=== PATIENT | female | born 1935 | race Caucasian/White ===

== ENCOUNTER 2019-06-28 06:16 | Inpatient (IN) | payer MEDICARE, OTHER ==
[2019-06-28 07:28] LABS: Troponin I 0.057 ng/mL (< 0.028)
[2019-06-28 07:38] LABS: INR-International Normal Ratio 1.3; Prothrombin Time 16.1 sec (12.0-14.7)
[2019-06-28 08:31] VITALS: BMI 34.7
[2019-06-28] MEDS ORDERED: cefTRIAXone\\ROCEPHIN 1 GM in Sodium Chloride 0.9% 100 ML IVPB SCH (09:00)
[2019-06-28] MEDS ORDERED: Ondansetron ODT 4 MG TAB PO PRN (09:05)
[2019-06-28] MEDS ORDERED: IBUPROFEN PO PRN (09:08)
[2019-06-28] MEDS ORDERED: HYDROCODONE PO PRN (09:08)
[2019-06-28] MEDS ORDERED: Non-Formulary Item 1 EACH (Albuterol Sulfate Hfa (Or) 2 PUFF) INH PRN (09:08)
[2019-06-28] MEDS ORDERED: Warfarin Sodium 2 MG TAB PO SCH (09:15)
--- NOTE | 2019-06-28 09:33 | PDOC.FPRHP ---
- Allergies/Adverse Reactions Allergies Allergy/AdvReac Type Severity Reaction Status Date / Time adhesive tape Allergy Intermediate "peels my Verified 05/01/19 22:32 skin off" acetaminophen [From Tylenol] Allergy Hives Verified 05/01/19 22:32 Penicillins Allergy Rash Verified 05/01/19 22:32 simvastatin [From Zocor] Allergy Verified 05/01/19 22:32 Sulfa (Sulfonamide Allergy Verified 05/01/19 22:32 Antibiotics) tramadol Allergy Verified 05/01/19 22:32 - Home Medications Medication Instructions Recorded Confirmed Type Albuterol Sulfate HFA (OR) 2 puff INH PRN PRN 06/28/19 06/28/19 History [Proventil Hfa (or)] Cetirizine HCl [Zyrtec] 10 mg PO DAILY 06/28/19 06/28/19 History Cholecalciferol (Vitamin D3) 3,000 unit PO DAILY 06/28/19 06/28/19 History [Vitamin D] Famotidine [Pepcid AC] 20 mg PO DAILY 06/28/19 06/28/19 History Furosemide [Lasix] 40 mg PO BID 06/28/19 06/28/19 History HYDROcodone/Ibuprofen [Vicoprofen 1 tab PO Q6HR PRN 06/28/19 06/28/19 History 7.5/200] Levothyroxine Sodium [Synthroid] 100 mcg PO DAILY 06/28/19 06/28/19 History Metoprolol Succinate [Toprol XL] 100 mg PO PRN PRN 06/28/19 06/28/19 History Warfarin Sodium [Coumadin] 1 mg PO DAILY@1700 06/28/19 06/28/19 History predniSONE [Prednisone] 5 mg PO 1200 06/28/19 06/28/19 History - History PMHx: PSHx: FHx: Social: - Vital signs BP: [] HR: [] RR: [] Tmax: [] Pox: []% on [] Wt: [] FMR H&P: Results - Labs Result Diagrams: 06/29/19 05:36 06/29/19 05:36 FMR H&P: Upper Level - Plan Date/Time: 06/28/19 0932 PCP: Lolita HPI: This is an 83 yo F admitted for delirium 2/2 UTI. She presented to [facility] last night for hip pain which had come on spontaneously and was similar to her chronic hip pain per her report. This pain resolved with pain medication. The patients daughter states that she had been having hallucinations saying I see people spraying the house for coronoavirus. The patient is AxOx3 and states she feel her normal self. She denies Chest pain, shortness of breath, or fevers at home. She states she has been ambulating with walker as per usual. She denies burning or blood with urination, denies N/V/D. PMH: Lymphedema, CHF, Afib, HTN, Hypothyroidism, CKD3, Pulmonary HTN, Aortic Stenosis, history of breast cancer PSH: partial colectomy, rotator cuff repair, knee x2, hysterectomy, L mastectomy Meds: see list above Allergies: see list above Soc Hx: denies smoking, alcohol, or drugs Fm hx: non-contributory REVIEW OF SYSTEMS: Gen: no fever, chills, or sweats Neuro: denies headache Eyes: no visual changes ENT: no hearing changes, no sore throat, no congestion Resp: denies cough, SOB Card: CP or palpitations GI: no N/V/D, no abdominal pain Heme: no easy bruising/bleeding, no blood thinners Skin: no rash, no erythema Vitals: BP 123/79 P91 R17 T98.4 98% on RA 104kg PHYSICAL EXAMINATION: General: NAD, alert and oriented x3 HEENT:, oropharynx without erythema or exudate, moist Neck: Supple. Full ROM. Heart/Cardiovascular System: irregularly irregular, 4/6 systolic murmur, cap refill <3 Lungs/Respiratory System: CTA-B, no resp distress Abdomen/Gastro-Intestinal System: no abdominal tenderness, normal bowel sounds Extremities: Warm extremities. Chronic lymphedema, no pitting Neuro: No gross deficits appreciated. CN 2-12 grossly intact. Patient was able to transfer herself from bed to bed Psychiatry: Awake, Alert and cooperative with exam Skin: No lesions, rashes, or ulcers A/P: # Delirium 2/2 UTI, Sepsis 2/2 UTI - Cont rocephin - Urine culture pending - WBC 12.4, P91, Tmax 101.4 in ED, s/p 1L NS in ED - Cautious with fluids 2/2 and CHF # COVID r/o - Low suspicion - COVID serology pending # Aortic Stenosis, CHF not in exacerbation, Afib, indeterminate trop-> likely demand - INR 1.3, extra dose Coumadin today - Bifasicular block, called for old EKGs to be sent to floor - Trop 0.051-> 0.057 - BNP 583, baseline 250, no effusion on CTA - Wt 235lbs, patient states baseline is 239 - Home Lasix dose, home meds - Dimer 1.31, likely acute phase reactant, no leg pain, CTA neg, will check lower extremity dopplers 2/2 lymphedema - Patient not interested in further procedures, DNI/DNR. 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 Batres on 06/28/19. I agree with the History, Examination, Assessment and Plan documented above with any addition or exceptions noted below. 83 y.o. WF with h/o Lymphedema, CHF, Afib, HTN, Hypothyroidism, CKD3, Pulmonary HTN, Aortic Stenosis, history of breast cancer here with delirium from sepsis due to Urinary tract infection. Improved since this a.m. Afebrile. continue IV Abx's and IVF as tolerated. Awaiting COVID result but low suspicion, PUI until negative.
[2019-06-28] MEDS ORDERED: PROVENTIL INHALER 6.7 G (200 INHALATIONS) INH PRN (09:34)
[2019-06-28] MEDS ORDERED: Vicoprofen PO PRN (09:39)
[2019-06-28 10:46] LABS: Troponin I 0.069 ng/mL (< 0.028)
[2019-06-28] MEDS: Loratadine 10 MG TAB PO SCH (10:50)
[2019-06-28] MEDS: predniSONE 5 MG TAB PO SCH (10:50)
[2019-06-28] MEDS ORDERED: Furosemide 40 MG TAB PO SCH (14:00)
[2019-06-28 15:59] LABS: Troponin I 0.053 ng/mL (< 0.028)
[2019-06-28] MEDS: Warfarin Sodium 1 MG TAB PO SCH (16:50)
[2019-06-28] MEDS: Furosemide 40 MG TAB PO SCH (21:29)
--- NOTE | 2019-06-28 21:35 | ULT ---
EXAM: Bilateral lower extremity venous ultrasound HISTORY: Elevated d-dimer. Bilateral extremity pain. COMPARISON: None TECHNIQUE: Multiplanar grayscale and color Doppler images were obtained in a bilateral lower extremit y venous ultrasound. Spectral analysis of the Doppler waveforms were performed. FINDINGS: The bilateral common femoral vein, profunda femoral veins, superficial femoral veins, and p opliteal veins are normal in appearance without visible thrombus. These vessels demonstrate normal compression, flow, and augmentation. The bilateral posterior tibial veins, profunda femoral veins and greater saphenous veins are patent w ithout evidence of DVT. IMPRESSION: No evidence of DVT in the left or right lower extremity.
[2019-06-28] MEDS ORDERED: Mag-Al 1200 mg/1200 mg/30 ML UDCUP PO PRN (23:19)
[2019-06-28] MEDS ORDERED: Calcium Carbonate 500 MG ChewTAB PO PRN (23:19)
[2019-06-29 06:10] LABS: #Eosinphils 0.2 thou/uL (0.0-0.7); #Lymphocytes 1.1 thou/uL (1.20-3.40); #Neutrophils 8.3 thou/uL (1.40-6.50); %Basophils 0.1 % (0.0-1.0); %Eosinophils 1.5 % (0.0-10.0); %Lymphocytes 10.6 % (21.0-51.0); %Monocytes 9.4 % (0.0-10.0); %Neutrophils 78.6 % (42.0-75.0); Hemoglobin 12.8 g/dL (12.0-16.0); Mean Corpuscular Hemoglobin 32.7 pg (27.0-31.0); Mean Platelet Volume 9.1 fL (7.4-10.4); Platelet Count 168 thou/uL (130-400); RBC Distribution Width 12.9 % (11.5-14.5); Red Blood Cell (RBC) Count 3.92 mill/uL (4.20-5.40); White Blood Cell (WBC) Count 10.5 thou/uL (4.8-10.8)
[2019-06-29 06:15] LABS: INR-International Normal Ratio 1.3; Prothrombin Time 16.6 sec (12.0-14.7)
[2019-06-29] MEDS ORDERED: Lorazepam 0.5 MG TAB PO SCH (06:15)
[2019-06-29 06:28] LABS: Anion Gap 13 mmol/L (10-20); BUN (Urea Nitrogen) 20 mg/dL (9.8-20.1); Calc. Creatinine Clearance 61 mL/min (70-130); Calcium 8.3 mg/dL (7.8-10.44); Carbon Dioxide 31 mmol/L (23-31); Chloride 99 mmol/L (98-107); Estimated GFR-MDRD 45; Glucose 87 mg/dL (83-110); Potassium 3.2 mmol/L (3.5-5.1); Sodium 140 mmol/L (136-145)
[2019-06-29] MEDS ORDERED: Ipratropium Bromide 2.5 ml Neb ONE (06:40)
--- NOTE | 2019-06-29 06:52 | PDOC.FM ---
- Subjective Subjective: NAEO. Patient reports some R arm pain 2/2 lymphedema but no LE pain or swelling. No chest pain or SOB. Feels about the same as she did yesterday. - Objective MAR Reviewed: Yes Vital Signs & Weight: Vital Signs (12 hours) Temp Pulse Resp BP Pulse Ox 06/29/19 05:00 99.7 F H 109 H 16 115/59 L 93 L 06/29/19 04:11 97 06/28/19 19:30 97.9 F 71 16 115/59 L 97 Weight Weight 106.322 kg I&O: 06/27/19 06/28/19 06/29/19 06:59 06:59 06:59 Intake Total 420 Output Total 900 Balance -480 Result Diagrams: 06/29/19 05:36 06/29/19 05:36 Phys Exam - Physical Examination Constitutional: NAD HEENT: moist MMs Neck: supple, full ROM Respiratory: no wheezing, no rales, clear to auscultation bilateral Cardiovascular: RRR irregularly irregular rhythm w/ NL rate & 4/6 systolic ejection murmur Gastrointestinal: soft, non-tender, no distention Musculoskeletal: no edema erythema & warmth in B/L LEs but nontender w/o edema Neurological: non-focal, moves all 4 limbs Psychiatric: normal affect, A&O x 3 Skin: no rash, normal turgor Dx/Plan (1) Hip pain Code(s): M25.559 - PAIN IN UNSPECIFIED HIP Status: Resolved (2) UTI (urinary tract infection) Status: Acute (3) Afib Code(s): I48.91 - UNSPECIFIED ATRIAL FIBRILLATION Status: Chronic Qualifiers: Atrial fibrillation type: persistent (4) CKD (chronic kidney disease) stage 3, GFR 30-59 ml/min Code(s): N18.3 - CHRONIC KIDNEY DISEASE, STAGE 3 (MODERATE) Status: Chronic (5) Chronic anticoagulation Code(s): Z79.01 - TREAD 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 (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) USE OF ANTICOAGULANTS Status: Chronic (6) HTN (hypertension) Code(s): I10 - ESSENTIAL (PRIMARY) HYPERTENSION Status: Chronic Qualifiers: Hypertension type: essential hypertension Qualified Code(s): I10 - Essential (primary) hypertension (7) Hypothyroidism Code(s): E03.9 - HYPOTHYROIDISM, UNSPECIFIED Status: Chronic (8) Lymphedema Code(s): I89.0 - LYMPHEDEMA, NOT ELSEWHERE CLASSIFIED Status: Chronic (9) Physical deconditioning Code(s): R53.81 - OTHER MALAISE Status: Chronic (10) Severe aortic stenosis Code(s): I35.0 - NONRHEUMATIC AORTIC (VALVE) STENOSIS Status: Chronic - Plan Plan: # Delirium 2/2 Sepsis from UTI, improved - WBC 12.4-->10.5, P91, & Tmax 101.4 in ED on arrival. VSS overnight & oriented to person place & year on exam. - UA dirty. Cx pending. Will continue rocephin pending prelim Cx results & susceptibilities. # COVID r/o, resolved -Negative test resulted yesterday # Aortic Stenosis - Aware. # CHF not in exacerbation, -BNP 583, baseline 250, no effusion on CTA -Continue home meds, QD weights & strict I&Os with fluid restricted & HH diet. # LE erythema -Dimer 1.31, likely acute phase reactant, no leg pain, CTA & lower extremity dopplers negative -Low suspicion for infectious etiology as B/L & not painful. Will continue to monitor. # Afib - INR 1.3 again this AM. Will dose accordingly today with goal of - Continue home meds # indeterminate trop-> likely demand - downtrended over course of day yesterday # Hypothyroidism -TSH 0.37, T4 WNLs. # CKD3 -Cr 1.15, within baseline range # Hip pain -CT hip neg, pain apparently resolved, likely osteoarthritis # Gout - Continue home steroids Fluids: KVO Code: DNR/DNI PPx: home coumadin Dispo: Possible d/c pending Cxs later today or tomorrow. Addendum - Attending - Attending Attestation Date/Time: 06/29/19 1039 I personally evaluated the patient and discussed the management with Dr. Mccurdy. I agree with the History, Examination, Assessment and Plan documented above with any addition or exceptions noted below. 83 yo F being treated for sepsis delirium 2/2 UTI. Awaiting results of urine culture. COVID negative. INR will be followed up outpatient. Patient reports pain in her hand and her hip this morning, history of pseudogout on prednisone. Will transition to inpatient and transfer to medical.
[2019-06-29] MEDS ORDERED: Potassium Chloride 20 MEQ TAB PO SCH (08:00)
[2019-06-29] MEDS ORDERED: CHOLECALCIFEROL 3000 UNIT PO SCH (09:00)
[2019-06-29] MEDS ORDERED: Non-Formulary Item 1 EACH (Cetirizine Hcl [Zyrtec] 10 MG) PO SCH (09:00)
[2019-06-29] MEDS: Famotidine 20 MG TAB PO SCH (09:56)
[2019-06-29] MEDS: Furosemide 40 MG TAB PO SCH ×2 (09:56→20:34)
[2019-06-29] MEDS: Levothyroxine Sodium 100 MCG TAB PO SCH (09:56)
[2019-06-29] MEDS: Loratadine 10 MG TAB PO SCH (09:56)
[2019-06-29] MEDS: predniSONE 5 MG TAB PO SCH (11:13)
[2019-06-29] MEDS ORDERED: oxyCODONE 5 MG TAB PO PRN (11:13)
[2019-06-29] MEDS: Warfarin Sodium 1 MG TAB PO SCH (17:48)
[2019-06-29] MEDS ORDERED: Diclofenac 1% 100 GM GEL TP PRN (19:15)
--- NOTE | 2019-06-29 23:27 | RAD ---
Exam:Right humerus 2 views HISTORY: Pain. Decreased movement. COMPARISON: None FINDINGS: No fracture, cortical irregularity or periosteal reaction IMPRESSION: No fracture.
--- NOTE | 2019-06-29 23:29 | RAD ---
Exam:Right hand 3 views HISTORY: Pain. Decreased movement. History of gout. COMPARISON: 06/26/2016 FINDINGS: Stable degenerative changes involving the first carpometacarpal joint space. There appears to be collapse of the trapezium and trapezoid bones. There are also chronic changes involving the scaphoid bone. There appears to be fusion of the capitate bone and hamate bones. Possible collapse of the lunate bone. No acute fractures. IMPRESSION: Presumed chronic changes of the carpal bones. Dedicated right wrist radiograph series is recommended.
--- NOTE | 2019-06-29 23:29 | RAD ---
Exam:Right forearm 2 view HISTORY: Decreased movement. Pain. COMPARISON: None FINDINGS: No fracture, cortical irregularity or periosteal reaction. IMPRESSION: No fracture.
[2019-06-30] MEDS ORDERED: predniSONE 20 MG TAB PO SCH (00:15)
[2019-06-30] MEDS ORDERED: Morphine 2 MG/ML SYRINGE SLOW IVP SCH (00:45)
[2019-06-30 05:18] LABS: INR-International Normal Ratio 1.3
[2019-06-30 05:29] LABS: MDiff Complete? YES
[2019-06-30] MEDS: cefTRIAXone\\ROCEPHIN 1 GM in Sodium Chloride 0.9% 100 ML IVPB SCH (05:45)
--- NOTE | 2019-06-30 07:06 | PDOC.FM ---
- Subjective Subjective: Patient fevered overnight to 101.3F with tachycardia into the 110s as well. Also had persistent right arm pain. Was given morphine for pain with negative x- ray & abx restarted as fell off orders yesterday. Patient reports she much better this AM. Reports pain in her elbow is much improved. No chest pain or SOB. - Objective MAR Reviewed: Yes Vital Signs & Weight: Vital Signs (12 hours) Temp Pulse Resp BP BP Pulse Ox 06/30/19 06:00 99.6 F 06/30/19 03:52 101.3 F H 111 H 18 120/67 95 06/30/19 03:11 100.9 F H 120 H 20 117/66 94 L 06/30/19 00:00 100.1 F H 125 H 18 127/70 92 L 06/29/19 19:58 98.8 F 99 18 136/78 90 L Weight Weight 107.8 kg I&O: 06/29/19 06/30/19 07/01/19 06:59 06:59 06:59 Intake Total 420 850 Output Total 900 1100 Balance -480 -250 Result Diagrams: 06/30/19 05:00 06/29/19 05:36 Phys Exam - Physical Examination Constitutional: NAD HEENT: moist MMs Neck: supple, full ROM Respiratory: no wheezing, no rales, no rhonchi, clear to auscultation bilateral Cardiovascular: no significant murmur tachycardic with irregular irregular rhythm Gastrointestinal: soft, non-tender, positive bowel sounds Musculoskeletal: edema present trace edema in B/L LEs Neurological: non-focal, moves all 4 limbs Psychiatric: normal affect, A&O x 3 Deviation from normal: B/L LE erythema, improved in appearance to yesterday Dx/Plan (1) Hip pain Code(s): M25.559 - PAIN IN UNSPECIFIED HIP Status: Resolved (2) UTI (urinary tract infection) Status: Acute (3) Afib Code(s): I48.91 - UNSPECIFIED ATRIAL FIBRILLATION Status: Chronic Qualifiers: Atrial fibrillation type: persistent (4) CKD (chronic kidney disease) stage 3, GFR 30-59 ml/min Code(s): N18.3 - CHRONIC KIDNEY DISEASE, STAGE 3 (MODERATE) Status: Chronic (5) Chronic anticoagulation Code(s): Z79.01 - ALF (CURRENT) USE OF ANTICOAGULANTS Status: Chronic (6) HTN (hypertension) Code(s): I10 - ESSENTIAL (PRIMARY) HYPERTENSION Status: Chronic Qualifiers: Hypertension type: essential hypertension Qualified Code(s): I10 - Essential (primary) hypertension (7) Hypothyroidism Code(s): E03.9 - HYPOTHYROIDISM, UNSPECIFIED Status: Chronic (8) Lymphedema Code(s): I89.0 - LYMPHEDEMA, NOT ELSEWHERE CLASSIFIED Status: Chronic (9) Physical deconditioning Code(s): R53.81 - OTHER MALAISE Status: Chronic (10) Severe aortic stenosis Code(s): I35.0 - NONRHEUMATIC AORTIC (VALVE) STENOSIS Status: Chronic - Plan Plan: # Sepsis from UTI, improved -Patient became septic overnight w/ tachycardia & fever but it was noted no abx were given on the floor yesterday. Urine Cx from outside facility + becker- sensitive E coli. s/p rocephin @ ~0530 this AM with improvement in VS since resolution of fever since. WBC up to 21.9 but patient also received a higher dose of steroids for her pseudogout which is likely exacerbating this in the setting of an acute infection. -Repeat Bld Cxs obtained overnight but low suspicion for bacteremia. Procal negative at 0.25. -Will consider transition to PO abx today given Cx results from original UA to complete for a 7 day course. # COVID r/o, resolved -Negative test resulted yesterday # Aortic Stenosis -Aware. # Acute on chronic macrocytic anemia -Hgb down to 7.8 this AM. No reported blood loss. Anemia workup added to AM labs & will repeat Hemagram this afternoon. Continue to monitor vitals closely. # CHF not in exacerbation, -BNP 583, baseline 250, no effusion on CTA -Continue home meds, QD weights & strict I&Os with fluid restricted & HH diet. # LE erythema -Dimer 1.31, likely acute phase reactant, no leg pain, CTA & lower extremity dopplers negative -Low suspicion for infectious etiology as B/L & not painful. Will continue to monitor. # Afib -In RVR in the 120s on exam this AM. Likely 2/2 poor PO intake in setting of acute infection. Will give 500mL bolus & reassess later this AM for improvement. -INR 1.3 again this AM. Will dose warfarin accordingly with goal of 2-3. # indeterminate trop-> likely demand -downtrended over course of admission day. Will repeat if patient develops chest pain # Hypothyroidism -TSH 0.37, T4 WNLs. Continue home meds # CKD3 -Cr 1.15, within baseline range # Hip pain -CT hip neg, pain apparently resolved, likely osteoarthritis. Pain management as note below. # Pseudogout -Continue home steroids but at increased dose for acute flare. Continue oxycodone PRN while inpatient as home med not available through hospital pharmacy. -Due to limited movement 2/2 pain from this daughter would feel more comfortable w/ placement prior to d/c home. Will touch base with CM to assess work on getting patient to [facility] possibly later today pending PT/OT recs. Fluids: KVO Code: DNR/DNI PPx: home coumadin Dispo: Possible d/c to [facility] later today on PO abx. Addendum - Attending - Attending Attestation Date/Time: 06/30/19 1108 I personally evaluated the patient and discussed the management with Dr. Mccurdy. I agree with the History, Examination, Assessment and Plan documented above with any addition or exceptions noted below. 83 yo F being treated for sepsis delirium 2/2 UTI. COVID negative. Mental status much improved. Will transition to PO antibiotics for UTI. Patient stable for discharge, placement at [facility] pending. Iron studies indicate iron deficiency anemia. No hemotochezia or melena. RA Oscar
[2019-06-30] MEDS: Levothyroxine Sodium 100 MCG TAB PO SCH (08:19)
[2019-06-30] MEDS: Famotidine 20 MG TAB PO SCH (08:19)
[2019-06-30] MEDS: Potassium Chloride 20 MEQ TAB PO SCH ×2 (08:19→16:52)
[2019-06-30] MEDS: Furosemide 40 MG TAB PO SCH ×2 (08:20→20:27)
[2019-06-30] MEDS: Loratadine 10 MG TAB PO SCH (08:20)
[2019-06-30] MEDS: predniSONE 20 MG TAB PO SCH (08:20)
[2019-06-30] MEDS ORDERED: Sodium Chloride 0.9% 500 ML IV SCH (08:45)
[2019-06-30] MEDS ORDERED: Artificial Tears 18 DROP/0.9 ML EA EYE PRN (09:20)
[2019-06-30 09:45] LABS: Iron 16 ug/dL (50-170); Iron Binding Capacity, Total 228 mcg/dL (265-497)
[2019-06-30 10:09] LABS: Ferritin 269.88 ng/mL (10-291)
[2019-06-30 14:29] LABS: Hemoglobin 13.9 g/dL (12.0-16.0); Mean Corpuscular HGB CONC 32.8 g/dL (32.0-36.0); Mean Corpuscular Hemoglobin 33.2 pg (27.0-31.0); Mean Platelet Volume 10.1 fL (7.4-10.4); Platelet Count 179 thou/uL (130-400); RBC Distribution Width 12.7 % (11.5-14.5); Red Blood Cell (RBC) Count 4.17 mill/uL (4.20-5.40); White Blood Cell (WBC) Count 15.3 thou/uL (4.8-10.8)
[2019-06-30] MEDS: oxyCODONE 5 MG TAB PO PRN (16:51)
[2019-06-30] MEDS ORDERED: Warfarin Sodium 2 MG TAB PO SCH (17:00)
--- NOTE | 2019-06-30 21:11 | PQF ---
DATE: 06-30-19 ATTN: DR. JUHI BUTT Please exercise your independent, professional judgment in responding to the clarification form. Clinical indicators are provided on the bottom of this form for your review Please check appropriate box(s): [ ] Encephalopathy: Type: [ x ] Acute [ ] Subacute [ ] Chronic Etiology: [ ] Metabolic [ ] Toxic [ x ] Septic [ ] Other (please specify) [ x ] Transient Alteration of Awareness [ ] Other diagnosis [ ] Unable to determine In addition, please specify: Present on Admission (POA): [ ] Yes [ ] No [ x ] Unable to determine For continuity of documentation, please document condition throughout progress notes and discharge summary. Thank You. CLINICAL INDICATORS - SIGNS / SYMPTOMS / LABS / RESULTS AND LOCATION IN EMR: ER NOTES 06-28-19: CHART SPEAKS THAT PT IS A LITTLE ALTERED. ER DX 06-28-19: UTI, COVID R/O, ELEVATED TROP H&P 06-28-19: THE PATIENTS DAUGHTER STATES SHE HAD BEEN HAVING HALLUCINATIONS SAYING "I SEE PEOPLE SPRAYING THE HOUSE FOR CORONAVIRUS", ALERT AND ORIENTED X3 H&P 06-28-19: DELIRIUM 2/2 UTI, SEPSIS 2/[address] BUTT NOTE 06-30-19: MENTAL STATUS MUCH IMPROVED RISK FACTORS / RESULTS AND LOCATION IN EMR: H&P 06-28-19: DELIRIUM 2/2 UTI, SEPSIS 2/2 UTI TREATMENTS / RESULTS AND LOCATION IN EMR: 06-30-19: CEFTRIAXONE IV, NS IVF (This form is maintained as a part of the permanent medical record) 2014 [employer], [employer]. All Rights Reserved BURKE [email or web address] [employer] [facility]ITAL[facility]
[2019-07-01] MEDS: cefTRIAXone\\ROCEPHIN 1 GM in Sodium Chloride 0.9% 100 ML IVPB SCH (05:09)
--- NOTE | 2019-07-01 06:14 | PDOC.FM ---
- Subjective Subjective: NAEO. Patient reports right arm pain an swelling is markedly improved this AM. Has been doing hand exercises per OT instructions which have helped improve her ROM. No complaints. - Objective MAR Reviewed: Yes Vital Signs & Weight: Vital Signs (12 hours) Temp Pulse Resp BP Pulse Ox 06/30/19 19:48 98.0 F 97 18 122/74 92 L Weight Weight 107.8 kg I&O: 06/29/19 06/30/19 07/01/19 06:59 06:59 06:59 Intake Total 996 111 2171 Output Total 900 1100 700 Balance -480 -250 500 Result Diagrams: 06/30/19 14:06 07/01/19 06:24 Phys Exam - Physical Examination Constitutional: NAD HEENT: moist MMs Neck: supple, full ROM Respiratory: no wheezing, no rales, no rhonchi, clear to auscultation bilateral irregularly irregular rhythm w/ normal rate & 3/6 systolic ejection murmur Gastrointestinal: soft Musculoskeletal: no edema Neurological: non-focal, moves all 4 limbs Psychiatric: normal affect, A&O x 3 Skin: no rash, normal turgor Dx/Plan (1) Hip pain Code(s): M25.559 - PAIN IN UNSPECIFIED HIP Status: Resolved (2) UTI (urinary tract infection) Status: Acute (3) Afib Code(s): I48.91 - UNSPECIFIED ATRIAL FIBRILLATION Status: Chronic Qualifiers: Atrial fibrillation type: persistent (4) CKD (chronic kidney disease) stage 3, GFR 30-59 ml/min Code(s): N18.3 - CHRONIC KIDNEY DISEASE, STAGE 3 (MODERATE) Status: Chronic (5) Chronic anticoagulation Code(s): Z79.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 OF ANTICOAGULANTS Status: Chronic (6) HTN (hypertension) Code(s): I10 - ESSENTIAL (PRIMARY) HYPERTENSION Status: Chronic Qualifiers: Hypertension type: essential hypertension Qualified Code(s): I10 - Essential (primary) hypertension (7) Hypothyroidism Code(s): E03.9 - HYPOTHYROIDISM, UNSPECIFIED Status: Chronic (8) Lymphedema Code(s): I89.0 - LYMPHEDEMA, NOT ELSEWHERE CLASSIFIED Status: Chronic (9) Physical deconditioning Code(s): R53.81 - OTHER MALAISE Status: Chronic (10) Severe aortic stenosis Code(s): I35.0 - NONRHEUMATIC AORTIC (VALVE) STENOSIS Status: Chronic (11) Pseudogout Code(s): M11.20 - OTHER CHONDROCALCINOSIS, UNSPECIFIED SITE Status: Acute - Plan Plan: # Sepsis from UTI, improved -VSS overnight. -Repeat Bld Cxs obtained yesterday still pending but low suspicion for bacteremia. Procal negative at 0.25. Urine Cxs growing becker-sensitive E. coli. -Will consider IV abx today per PCP since patient going to SNF today. #HypoK - K 3.2 yesterday, s/p 40 mEq BID-WM. Repeat pending for today & will replace PRN. # COVID r/o, resolved -Negative test resulted yesterday # Aortic Stenosis -Aware. # Acute on chronic macrocytic anemia, resolved -Hgb down to 7.8 yesterday but this was investigated by hematology and determined to be a blood draw error, sample was diluted & values have been erased from patient's medical record. Irons studies did reveal low Fe but NL B12 & folate. FOBT negative. Repeat Hgb yesterday PM WNLs @ 13. # CHF not in exacerbation, -BNP 583, baseline 250, no effusion on CTA -Continue home meds, QD weights & strict I&Os with fluid restricted & HH diet. # LE erythema -Dimer 1.31, likely acute phase reactant, no leg pain, CTA & lower extremity dopplers negative -Low suspicion for infectious etiology as B/L & not painful. Per daughter legs are always red so suspect a component of chronic venous insufficiency. - Will continue to monitor. # Afib -HR stable overnight. -INR pending for this AM. Will dose warfarin accordingly with goal of 2-3. # indeterminate trop-> likely demand -downtrended over course of admission day. Will repeat if patient develops chest pain. # Hypothyroidism -TSH 0.37, T4 WNLs. Continue home meds. # CKD3 -Cr ?, within baseline range. # Hip pain -CT hip neg, pain apparently resolved, likely osteoarthritis. Pain management as note below. # Pseudogout -Continue home steroids but at increased dose for acute flare. Continue oxycodone PRN while inpatient as home med not available through hospital pharmacy. -Due to limited movement 2/2 pain from this patient to go to [facility] to continue pain control & get PT/OT to increase strength before going back home alone. Accepted overnight & to be discharged this AM. Fluids: KVO Code: DNR/DNI PPx: home coumadin Dispo: D/c to [facility] this AM. Addendum - Attending - Attending Attestation Date/Time: 07/01/19 5367 I personally evaluated the patient and discussed the management with Dr. Mccurdy. I agree with the History, Examination, Assessment and Plan documented above with any addition or exceptions noted below. Stable for d/c to SNU.
[2019-07-01 06:57] LABS: INR-International Normal Ratio 1.3; Prothrombin Time 16.5 sec (12.0-14.7)
[2019-07-01 07:19] LABS: Anion Gap 14 mmol/L (10-20); BUN (Urea Nitrogen) 35 mg/dL (9.8-20.1); Calc. Creatinine Clearance 60 mL/min (70-130); Calcium 8.6 mg/dL (7.8-10.44); Carbon Dioxide 31 mmol/L (23-31); Chloride 102 mmol/L (98-107); Estimated GFR-MDRD 42; Glucose 87 mg/dL (83-110); Potassium 3.6 mmol/L (3.5-5.1); Sodium 143 mmol/L (136-145)
[2019-07-01 08:17] VITALS: BP 123/62; TEMP 97.8
[2019-07-01] MEDS: Famotidine 20 MG TAB PO SCH (08:46)
[2019-07-01] MEDS: predniSONE 20 MG TAB PO SCH (08:46)
[2019-07-01] MEDS: Levothyroxine Sodium 100 MCG TAB PO SCH (08:46)
[2019-07-01] MEDS: Furosemide 40 MG TAB PO SCH (08:49)
[2019-07-01] MEDS: Potassium Chloride 20 MEQ TAB PO SCH (08:49)
[2019-07-01] MEDS: Loratadine 10 MG TAB PO SCH (08:49)
[2019-07-01] MEDS: oxyCODONE 5 MG TAB PO PRN (11:13)
--- NOTE | 2019-07-02 11:12 | DIS ---
DATE OF ADMISSION: 06/29/2019 DATE OF DISCHARGE: 07/01/2019 RESIDENT: Izabella Mccurdy MD ADMITTING ATTENDING: Chuy Cohen MD DISCHARGE ATTENDING: Castillo Oscar MD CONSULTS: None. PROCEDURES: PRIMARY DIAGNOSES: 1. Acute metabolic encephalopathy secondary to urinary tract infection. 2. Acute flare of pseudogout. SECONDARY DIAGNOSES: 1. Aortic stenosis. 2. Congestive heart failure. 3. Atrial fibrillation, on warfarin. 4. Hypothyroidism. 5. Chronic kidney disease 3. 6. Osteoarthritis. DISCHARGE MEDICATIONS: 1. Vicoprofen 7.5/200 mg 1 tab p.o. q.6 hours p.r.n. 2. Proventil 2 puffs inhaled p.r.n. 3. Warfarin 1 mg p.o. daily at 1700. 4. Lasix 40 mg p.o. b.i.d. 5. Famotidine 20 mg p.o. daily. 6. Metoprolol succinate 100 mg p.o. for heart rate p.r.n. as instructed. 7. Levothyroxine sodium 100 mcg p.o. daily. 8. Cholecalciferol 3000 units p.o. daily. 9. Cetirizine 10 mg p.o. daily. 10. Artificial Tears 2 drops in each eye q.4 hours as needed. 11. Voltaren gel 2 g topically q.i.d. as needed. 12. Prednisone 30 mg p.o. q.a.m. with meals. DISCONTINUED MEDICATIONS: None. HOSPITAL COURSE: The patient is an 83YOF with a PMH notable for pseudogout, CKDIII, and a fib on warfarin who was transferred from the [place] ER after presenting there with a CC of hip pain and hallucinations. Per the patient's daughter she reportedly been saying I see people spraying the house for coronoavirus" so she brought her to the ER for further evaluation. The patient' s vitals were WNLs on presentation and her labs and imaging were notable for a likely UTI with a dirty UA, WBC of 12.4. She was reportedly also complaining of SOB at that time as well so a COVID-19 swab was obtained. Based on the [place] workup she was determined to be delirious 2/2 a UTI and given a dose of IV Rocephin before being sent to [facility] for further management. The patient was continued on IV abx while at Health system and by the date of discharge her delirium has resolved entirely and her Urine Cx was + for becker-sensitive E. Coli. She was therefore continued on rocephin upon discharge per the recs of her PCP, Dr. Mitchell Mchugh. Regarding her acute pseudogout flare, the patient reported severe right arm pain during her first night at Health system and had significant arm erythema & edema. Imaging of her entire arm was obtained which was WNLs and it was determined to most likely be 2/2 an acute pseudogout flare. The patient's steroids were therefore increased to 30mg PO QD and she was given PRN oxycodone which resulted in significant improvement of her symptoms by the date of discharge. However, given the fact that she still had limited mobility in her arm from the pain, PT & OT recommended rehab vs. SNF placement and she was accepted for placement in [place] under the supervision of her PCP for continued PT/OT and pain control. DISPOSITION: Stable. DISCHARGE INSTRUCTIONS: 1. Location: [facility] in [place], [place]. 2. Diet: Heart healthy, low-sodium diet. 3. Activity: As tolerated. No restrictions. 4. Followup: The patient was instructed to follow up with her PCP at [facility] in [place] on the date of discharge. Job ID: [id number] MTDD
== END 2019-07-01 14:28 | DRG 871 ==
LOC: ERS 06:16 → 2SW 08:12 → OBSVTOIN 06-29 10:46 → T4-A 06-29 12:04
PROVIDERS: ADMIT Family Medicine; ATTEND Family Medicine
DX: A41.9 Sepsis, unspecified organism (principal); G93.41 Metabolic encephalopathy; I48.19 Other persistent atrial fibrillation; N39.0 Urinary tract infection, site not specified; I13.0 Hypertensive heart and chronic kidney disease with heart failure and stage 1 through stage 4 chronic kidney disease, or unspecified chronic kidney disease; Z66 Do not resuscitate; Z20.828 Contact with and (suspected) exposure to other viral communicable diseases; N18.3 Chronic kidney disease, stage 3 (moderate); E03.9 Hypothyroidism, unspecified; I89.0 Lymphedema, not elsewhere classified; I35.0 Nonrheumatic aortic (valve) stenosis; I50.9 Heart failure, unspecified; D63.1 Anemia in chronic kidney disease; E87.6 Hypokalemia; M11.20 Other chondrocalcinosis, unspecified site; Z79.01 Long term (current) use of anticoagulants; Z79.899 Other long term (current) drug therapy
CPT/HCPCS: 36415; 80048; 82274; 82607; 82728; 82746; 83540; 83550; 84145; 84439; 84443; 85025; 85610; 87040; 93970; 99284; J0696; J2270; J3490; J7512

== ENCOUNTER 2019-07-16 13:58 | Inpatient (IN) | payer MEDICARE, OTHER ==
--- NOTE | 2019-07-16 14:44 | RAD ---
RADIOGRAPH CHEST 1 VIEW: DATE: 07/16/2019 HISTORY: 83-year-old female, COVID-19 positive, with fever and tachycardia FINDINGS: There is cardiomegaly. There is no evidence of airspace density, pulmonary edema, or pneumothorax. Th e lateral costophrenic angles are not effaced. IMPRESSION: 1) No acute pulmonary findings. 2) cardiomegaly without congestive heart failure.
[2019-07-16 14:45] LABS: Hemoglobin 15.3 g/dL (12.0-16.0); Mean Corpuscular HGB CONC 32.9 g/dL (32.0-36.0); Mean Corpuscular Hemoglobin 33.3 pg (27.0-31.0); Mean Platelet Volume 9.1 fL (7.4-10.4); Platelet Count 170 thou/uL (130-400); Red Blood Cell (RBC) Count 4.59 mill/uL (4.20-5.40); White Blood Cell (WBC) Count 14.2 thou/uL (4.8-10.8)
[2019-07-16] MEDS ORDERED: Aztreonam 2 GM in Sodium Chloride 0.9% 100 ML IVPB SCH (14:45)
[2019-07-16 14:47] LABS: Bacteria/HPF 2+ HPF (None Seen); Bilirubin Negative (Negative); Blood, Urine Negative (Negative); Clarity Clear (Clear); Glucose, Urine (Dipstick) Normal (Negative); Leukocyte 500 Leu/uL (Negative); Nitrite Negative (Negative); Protein, Urine (Dipstick) Negative (Neg-Trace); Squamous Epithelial 0-3 HPF (0-3); Urobilinogen Normal mg/dL (Less than 2); WBC/HPF Greater than 50 HPF (0-3)
[2019-07-16 15:03] LABS: INR-International Normal Ratio 1.4; PTT 33.7 sec (22.9-36.1); Prothrombin Time 16.9 sec (12.0-14.7)
[2019-07-16 15:05] LABS: Band 12 % (5-11); Eosinophils 4 % (0-10); Lymphocytes 2 % (21-51); MDiff Complete? YES; Macrocytosis SLIGHT = 6-15 cells (100X) (0-5/hpf); Monocytes 7 % (0-10); Neutrophil 69 % (42-75); Platelet Morphology Comment Appears Adequate; Polychromasia SLIGHT = 2-3 cells (100X) (0-2/hpf); Reactive Lymphocytes 6 % (0-10)
--- NOTE | 2019-07-16 15:13 | RAD ---
Left elbow 4 views HISTORY: Elbow pain. Findings fluid distention of the joint capsule are apparent. Soft tissue swelling over the olecranon bursa is again demonstrated. IMPRESSION : Soft tissue prominence over the olecranon, possibly representing fluid distention of the olecranon bu rsa. No acute osseous abnormalities are demonstrated.
[2019-07-16] MEDS ORDERED: cefTRIAXone\\ROCEPHIN 2 GM VIAL ONE (15:23)
[2019-07-16 15:28] LABS: CKMB 0.8 ng/mL (0-6.6)
[2019-07-16 15:32] LABS: ALT (SGPT) 11 U/L (8-55); AST (SGOT) 30 U/L (5-34); Albumin 3.4 g/dL (3.4-4.8); Alkaline Phosphatase 71 U/L (40-110); Anion Gap 15 mmol/L (10-20); BUN (Urea Nitrogen) 19 mg/dL (9.8-20.1); Bilirubin, Total 1.8 mg/dL (0.2-1.2); Calc. Creatinine Clearance 0 mL/min (70-130); Carbon Dioxide 29 mmol/L (23-31); Chloride 99 mmol/L (98-107); Estimated GFR-MDRD 44; Globulin 3.2 g/dL (2.4-3.5); Glucose 87 mg/dL (83-110); Potassium 4.2 mmol/L (3.5-5.1); Protein, Total 6.6 g/dL (6.0-8.3); Sodium 139 mmol/L (136-145)
--- NOTE | 2019-07-16 16:08 | PDOC.FPRHP ---
- History of Present Illness Chief Complaint: Fever, L elbow pain History of Present Illness: 83 yo F w/ hx of gout and UTIs, recently discharged for pansensitive E coli UTI , presents for fevers/chills that started this morning, up to 101.9 F. She also reports L elbow pain and swelling that started 2 days ago. Patient also reports upper back pain that started yesterday. She denies chest pain, reports palpitations, denies abdominal pain or flank pain, denies dysuria/hematuria, reports constipation. Patient was found to have afib in the 140s by EMS, was given a bolus of cardizem then started on a 5 mg cardizem drip. Pulse improved to the 80s. ED Course: Given 1 L NS Given 25 mg cardizem by EMS, then started on 5 mg drip aztreonam, rocephin, vanc - Allergies/Adverse Reactions Allergies Allergy/AdvReac Type Severity Reaction Status Date / Time adhesive tape Allergy Intermediate "peels my Verified 07/16/19 18:56 skin off" acetaminophen [From Tylenol] Allergy Hives Verified 07/16/19 18:56 colchicine Allergy Verified 07/16/19 18:56 Penicillins Allergy Rash Verified 07/16/19 18:56 simvastatin [From Zocor] Allergy Verified 07/16/19 18:56 Sulfa (Sulfonamide Allergy Verified 07/16/19 18:56 Antibiotics) tramadol Allergy Verified 07/16/19 18:56 - Home Medications Medication Instructions Recorded Confirmed Type Albuterol Sulfate HFA (OR) 2 puff INH PRN PRN 06/28/19 07/16/19 History [Proventil Hfa (or)] Cetirizine HCl [Zyrtec] 10 mg PO DAILY 06/28/19 07/16/19 History Cholecalciferol (Vitamin D3) 3,000 unit PO DAILY 06/28/19 07/16/19 History [Vitamin D] Famotidine [Pepcid AC] 20 mg PO DAILY 06/28/19 07/16/19 History HYDROcodone/Ibuprofen [Vicoprofen] 1 tab PO Q6HR PRN 06/28/19 07/16/19 History Levothyroxine Sodium [Synthroid] 100 mcg PO DAILY 06/28/19 07/16/19 History Metoprolol Succinate [Toprol XL] 100 mg PO PRN PRN 06/28/19 07/16/19 History Artificial Tears [Tears Naturale 2 drop EA EYE Q4H PRN each 06/30/19 07/16/19 Rx Free] Diclofenac Sodium [Voltaren Gel] 2 gm TP QID PRN tube 06/30/19 07/16/19 Rx Furosemide [Lasix] 40 mg PO 0900,1600 tab 07/06/19 07/16/19 Rx Warfarin Sodium [Coumadin] 2.5 mg PO DAILY@1700 #30 tab 07/06/19 07/16/19 Rx predniSONE 5 mg PO QAM-WM #90 tab 07/06/19 07/16/19 Rx - History Meds: albuterol | Coumadin oral | Lasix oral | metoprolol succinate | Pepcid AC | predniSONE 5 mg qd | Synthroid oral | Vicoprofen | ZyrTEC Allergies: penicillin- rash; tylenol - rash, SOB; tape - rash; zocor- doesn't know reaction; lipitor- do not know reaction; colchicine - severe dehydration/ diarrhea; statins- don't know why; tramadol - because she is on coumadin and it does not work for her pain PMH: Lymphedema, CHF, Afib, HTN, Hypothyroidism, CKD3, Pulmonary HTN, Aortic Stenosis, history of breast cancer, Mitral Valve Prolapse, HLD, osteoarthritis, pseudoGout PSH: partial colectomy, knee replacements bilat, hysterectomy, radical L mastectomy Soc Hx: denies smoking, alcohol, or drugs Fm hx: no family history of diabetes or stroke; father of [place], unknown age - Review of Systems General: reports: fever/chills, fatigue. denies: weight/appetite/sleep changes Eyes: denies: eye pain, vision changes ENT: denies: nasal congestion, rhinorrhea Respiratory: denies: cough, congestion, shortness of breath Cardiovascular: reports: palpitation, edema. denies: chest pain Gastrointestinal: reports: constipation. denies: nausea, vomiting, diarrhea, abdominal pain, GI bleeding Genitourinary: denies: dysuria, other (hematuria) Skin: denies: rashes, lesions Musculoskeletal: reports: pain (upper back pain), swelling (L elbow, warmth) Neurological: denies: numbness, weakness Psychological: denies: anxiety, depression - Vital signs BP 125/79, RR 18, HR 74, T 99.9, 99% on RA Weight 104.8 kg - Physical Exam Constitutional: NAD, awake, alert and oriented HEENT: normocephalic and atraumatic, conjunctiva clear, grossly normal hearing, normal nasal mucosa, MMM, oropharynx clear, good dention Neck: supple, trachea midline Heart: RRR (systolic 3/6 murmur) Lungs: CTAB, other (decreased breath sounds at bases) Abdomen: soft, non-tender, bowel sounds present, no masses/distention, other ( old midline scar) Musculoskeletal: normal structure, other (no CVA tenderness) Neurological: no focal deficit, CN II-XII intact (grossly intact) Skin: good turgor, capillary refill <2 seconds, other (Swelling, erythema, and soft fluid collection over posterior L elbow with mild tenderness) Heme/Lymphatic: other (bruising around IV sites) Psychiatric: normal mood and affect, good judgment and insight, intact recent and remote memory FMR H&P: Results - Labs Result Diagrams: 07/17/19 02:18 07/17/19 02:18 Lab results: WBC 14.2 thou/uL (4.8-10.8) H 07/16/19 14:32 Hgb 15.3 g/dL (12.0-16.0) 07/16/19 14:32 Hct 46.5 % (36.0-47.0) 07/16/19 14:32 MCV 101.0 fL (78.0-98.0) H 07/16/19 14:32 Plt Count 170 thou/uL (130-400) 07/16/19 14:32 Band Neuts % (Manual) 12 % (5-11) H 07/16/19 14:32 Sodium 139 mmol/L (136-145) 07/16/19 14:32 Potassium 4.2 mmol/L (3.5-5.1) 07/16/19 14:32 Chloride 99 mmol/L (98-107) 07/16/19 14:32 Carbon Dioxide 29 mmol/L (23-31) 07/16/19 14:32 BUN 19 mg/dL (9.8-20.1) 07/16/19 14:32 Creatinine 1.17 mg/dL (0.6-1.1) H 07/16/19 14:32 Glucose 87 mg/dL (83-110) 07/16/19 14:32 Lactic Acid 1.5 mmol/L (0.5-2.2) 07/16/19 14:41 Calcium 8.0 mg/dL (7.8-10.44) 07/16/19 14:32 Total Bilirubin 1.8 mg/dL (0.2-1.2) H 07/16/19 14:32 AST 30 U/L (5-34) 07/16/19 14:32 ALT 11 U/L (8-55) 07/16/19 14:32 Alkaline Phosphatase 71 U/L (40-110) 07/16/19 14:32 CK-MB (CK-2) 0.8 ng/mL (0-6.6) 07/16/19 14:32 C-Reactive Protein 8.91 mg/dL (= or < 0.5) H 07/16/19 14:32 B-Natriuretic Peptide 177.9 pg/mL (0-100) H 07/16/19 14:41 Serum Total Protein 6.6 g/dL (6.0-8.3) 07/16/19 14:32 Albumin 3.4 g/dL (3.4-4.8) 07/16/19 14:32 Urine Ketones Negative mg/dL (Negative) 07/16/19 14:10 Urine Blood Negative (Negative) 07/16/19 14:10 Urine Nitrite Negative (Negative) 07/16/19 14:10 Ur Leukocyte Esterase 500 Tatyana/uL (Negative) A 07/16/19 14:10 Urine RBC 4-6 HPF (0-3) A 07/16/19 14:10 Urine WBC Greater than 50 HPF (0-3) A 07/16/19 14:10 Ur Squamous Epith Cells 0-3 HPF (0-3) 07/16/19 14:10 Urine Bacteria 2+ HPF (None Seen) A 07/16/19 14:10 - EKG Interpretation EKG: Afib with PVCs, RBBb, Left anterior fascicular block voltage criteria for LVH - Radiology Interpretation Chest x-ray Status: report reviewed by me (no acute abnormality) FMR H&P: A/P - Problem List (1) Pseudogout Current Visit: No Status: Acute Code(s): M11.20 - OTHER CHONDROCALCINOSIS, UNSPECIFIED SITE (2) UTI (urinary tract infection) Current Visit: No Status: Acute (3) Afib Current Visit: No Status: Acute Code(s): I48.91 - UNSPECIFIED ATRIAL FIBRILLATION Qualifiers: Atrial fibrillation type: persistent Comment: Continue supportive measures, hold Coumadin due to supratherapeutic INR (4) CKD (chronic kidney disease) stage 3, GFR 30-59 ml/min Current Visit: No Status: Chronic Code(s): N18.3 - CHRONIC KIDNEY DISEASE, STAGE 3 (MODERATE) (5) Chronic anticoagulation Current Visit: No Status: Chronic Code(s): Z79.01 - SHELTER (CURRENT) USE OF ANTICOAGULANTS Comment: Resume Coumadin 5mg on -, see above, repeat INR in am (6) HTN (hypertension) Current Visit: No Status: Chronic Code(s): I10 - ESSENTIAL (PRIMARY) HYPERTENSION Qualifiers: Hypertension type: essential hypertension Qualified Code(s): I10 - Essential (primary) hypertension (7) Hypothyroidism Current Visit: No Status: Chronic Code(s): E03.9 - HYPOTHYROIDISM, UNSPECIFIED Comment: Continue Levothyroxine 100mcg daily (8) Lymphedema Current Visit: No Status: Chronic Code(s): I89.0 - LYMPHEDEMA, NOT ELSEWHERE CLASSIFIED (9) Pulmonary HTN Current Visit: No Status: Chronic Code(s): I27.2 - OTHER SECONDARY PULMONARY HYPERTENSION * DO NOT USE * Comment: sec to valvular heart disease (10) Severe aortic stenosis Current Visit: No Status: Chronic Code(s): I35.0 - NONRHEUMATIC AORTIC ( VALVE) STENOSIS - Plan #Covid r/o -Low suspicion, febrile #Afib with RVR, resolved -On chronic coumadin f or chronic Afib; was in 140s with EMS, resolved to 80s -s/p 25 mg diltiazem, currently on 5 mg drip dilt -Plan to start home oral metoprolol then stop the dilt drip #Sepsis 2/2 UTI vs Cellulitis -Continue vanc and rocephin (renally dosed); stop aztreonam -Blood and urine cultures pending -Consider aspiration of L elbow to evaluate for pseudogout vs septic joint vs cellulitis (see below) #Pseudogout vs Cellulitis vs septic joint of L elbow -Pt is on 5 mg prednisone daily for pseudogout -covering with vanc for cellulitis; consider aspiration tomorrow for culture/ cell studies -Start steroids 30 mg/day for pseudogout #CKD -GFR 44 -Renally dose medications #Hypothyroidism -Continue home medications #HTN -continue home meds #HLD -home meds #Hx of Breast cancer -aware #CHF #Severe Aortic stenosis #Pulmonary HTN #Elevated troponin, likely demand -Not in acute exacerbation, continue home meds; BNP and trop at baseline. Will trend 1 troponin. #Constipation -senna doc -miralax daily Diet: HH, limit to 1800 ml/day Gi ppx: none DVT ppx: home coumadin PCP: Lolita Code:DNR DNI Dispo: LOS >48 hours. Admit to telemetry inpatient for sepsis 2/2 UTI vs cellulitis. Pt is on tele obs until covid r/o. FMR H&P: Upper Level - Plan Date/Time: 07/16/19 1602 I, [], have evaluated this patient and agree with findings/plan as outlined by internet sales director resident. Pertinent changes/additions are listed here. Addendum - Attending - Attending Attestation Date/Time: 07/17/19 0634 I personally evaluated the patient and discussed the management with Dr. Joo Batres I agree with the History, Examination, Assessment and Plan documented above with any addition or exceptions noted below - 83 yo F w/ hx of gout and UTIs, recently discharged for E coli UTI, presents for fevers/chills that started this morning, up to 101.9 F. She also reports L elbow pain and swelling that started 2 days ago. Patient also reports upper back pain that started yesterday. She denies chest pain, reports palpitations, denies abdominal pain or flank pain, denies dysuria/hematuria, reports constipation. PMH/PSH/Meds/SH reviewed and agree with resident's documentation. T100.9 P88 RR18 BP 138/76 Exam repeated by me and agree with resident's documentation. Labs: WBC=14.2, H/H =15.3/46.5, Pnn=112, Ew=895, K=4.2, Cl=99, CO2=29, BUN/Cr=19/1.17, Gluc=87, t bili=1.8 U/a (+)leuk est, WBC>50, 2+bact A/P: 1) Sepsis most likely secondary to UTI - Continue Vanc and rocephin. Blood and urine cultures pending. COVID swab pending. 2) Elbow pain- h/o pseudogout- started on steroids; continue to monitor; consider arthrocentesis if not improving.
[2019-07-16] MEDS ORDERED: Morphine 4 MG/ML VIAL ONE (16:14)
[2019-07-16] MEDS ORDERED: Diltiazem HCl 125 MG, Admixture Fee 1 EACH in Sodium Chloride 0.9% 100 ML IVPB SCH (17:00)
[2019-07-16] MEDS ORDERED: Bisacodyl 10 MG SUPP PR PRN (19:05)
[2019-07-16] MEDS ORDERED: Senokot S 8.6-50 MG TAB PO PRN (19:05)
[2019-07-16] MEDS ORDERED: Piperacillin/Tazobactam 3.375 GM in Sodium Chloride 0.9% 100 ML IVPB SCH (20:00)
[2019-07-16 20:54] VITALS: BMI 33.3
[2019-07-16] MEDS ORDERED: oxyCODONE 5 MG TAB PO PRN (21:27)
[2019-07-16] MEDS ORDERED: Artificial Tear Sol 15 ML BOT EA EYE PRN (21:29)
[2019-07-16] MEDS ORDERED: Albuterol 200 PUFF (6.7GM INHALER) INH PRN (21:29)
[2019-07-16] MEDS ORDERED: Diclofenac 1% 100 GM GEL TP PRN (21:29)
[2019-07-16 21:56] LABS: Troponin I 0.076 ng/mL (< 0.028)
[2019-07-17 02:29] LABS: #Eosinphils 0.3 thou/uL (0.0-0.7); #Lymphocytes 1.1 thou/uL (1.20-3.40); #Monocytes 1.4 thou/uL (0.11-0.59); %Basophils 0.1 % (0.0-1.0); %Eosinophils 1.7 % (0.0-10.0); %Lymphocytes 7.2 % (21.0-51.0); %Monocytes 9.4 % (0.0-10.0); %Neutrophils 81.6 % (42.0-75.0); Hemoglobin 13.8 g/dL (12.0-16.0); Mean Corpuscular HGB CONC 33.4 g/dL (32.0-36.0); Mean Corpuscular Hemoglobin 33.6 pg (27.0-31.0); Mean Platelet Volume 8.8 fL (7.4-10.4); Platelet Count 159 thou/uL (130-400); RBC Distribution Width 13.1 % (11.5-14.5); White Blood Cell (WBC) Count 14.8 thou/uL (4.8-10.8)
[2019-07-17 02:54] LABS: Anion Gap 11 mmol/L (10-20); BUN (Urea Nitrogen) 19 mg/dL (9.8-20.1); Calc. Creatinine Clearance 58 mL/min (70-130); Calcium 8.1 mg/dL (7.8-10.44); Carbon Dioxide 32 mmol/L (23-31); Chloride 98 mmol/L (98-107); Estimated GFR-MDRD 43; Glucose 96 mg/dL (83-110); Potassium 3.7 mmol/L (3.5-5.1); Sodium 137 mmol/L (136-145)
[2019-07-17] MEDS ORDERED: Vancomycin 1.5 GM in Premix Bag 1 BAG IVPB SCH (03:00)
[2019-07-17] MEDS: Levothyroxine Sodium 100 MCG TAB PO SCH (05:40)
[2019-07-17] MEDS: Ibuprofen 200 MG TAB PO PRN ×2 (05:40→13:21)
--- NOTE | 2019-07-17 06:36 | PDOC.FM ---
- Subjective Subjective: Patient up and alert on exam this AM. Only complaint was wet sheets 2/2 incontinence. Reports pain in her left elbow but has good ROM. Feels well this AM. - Objective MAR Reviewed: Yes Vital Signs & Weight: Vital Signs (12 hours) Temp Pulse Resp BP Pulse Ox 07/17/19 04:00 99.8 F H 80 18 125/63 95 07/17/19 00:00 99.9 F H 84 18 120/61 97 07/16/19 20:00 96 07/16/19 19:05 75 18 125/58 L Weight Weight 103.737 kg Result Diagrams: 07/17/19 02:18 07/17/19 02:18 Phys Exam - Physical Examination Constitutional: NAD HEENT: moist MMs Neck: supple, full ROM Respiratory: no wheezing, no rales, no rhonchi, clear to auscultation bilateral irregularly irregular rhythm w/ normal rate & 3/6 systolic flow murmur Gastrointestinal: no distention edema w/ erythema & warmth over left olecranon process w/ no TTP & NL ROM in arm; trace B/L LE erythema & edema; chronic edema in R arm Neurological: non-focal, moves all 4 limbs Psychiatric: normal affect, A&O x 3 Skin: no rash Dx/Plan (1) UTI (urinary tract infection) Status: Acute (2) Afib Code(s): I48.91 - UNSPECIFIED ATRIAL FIBRILLATION Status: Chronic Qualifiers: Atrial fibrillation type: longstanding persistent Qualified Code(s): I48.11 - Longstanding persistent atrial fibrillation (3) Pseudogout Code(s): M11.20 - OTHER CHONDROCALCINOSIS, UNSPECIFIED SITE Status: Chronic (4) CKD (chronic kidney disease) stage 3, GFR 30-59 ml/min Code(s): N18.3 - CHRONIC KIDNEY DISEASE, STAGE 3 (MODERATE) Status: Chronic (5) Chronic anticoagulation Code(s): Z79.01 - SALESPERSON JEWELRY (CURRENT) USE OF ANTICOAGULANTS Status: Chronic (6) Chronic back pain Code(s): M54.9 - DORSALGIA, UNSPECIFIED; G89.29 - OTHER CHRONIC PAIN Status: Chronic Qualifiers: Back pain location: low back pain Back pain laterality: bilateral Sciatica presence: unspecified whether sciatica present Qualified Code(s): M54.5 - Low back pain; G89.29 - Other chronic pain (7) HTN (hypertension) Code(s): I10 - ESSENTIAL (PRIMARY) HYPERTENSION Status: Chronic Qualifiers: Hypertension type: essential hypertension Qualified Code(s): I10 - Essential (primary) hypertension (8) Hypothyroidism Code(s): E03.9 - HYPOTHYROIDISM, UNSPECIFIED Status: Chronic (9) Lymphedema Code(s): I89.0 - LYMPHEDEMA, NOT ELSEWHERE CLASSIFIED Status: Chronic (10) Pulmonary HTN Code(s): I27.2 - OTHER SECONDARY PULMONARY HYPERTENSION * DO NOT USE * Status : Chronic (11) Severe aortic stenosis Code(s): I35.0 - NONRHEUMATIC AORTIC (VALVE) STENOSIS Status: Chronic - Plan Plan: #Covid r/o -Low suspicion, ordered 2/2 fever only, no respiratory symptoms. #Afib with RVR, resolved -On chronic coumadin for chronic Afib; was in 140s with EMS, resolved to 80s & remained stable overnight s/p 25 mg diltiazem temporary cardizem drip placement & a dose of her home metoprolol. -Will continue home metoprolol. #Sepsis 2/2 UTI vs septic arthritis -Patient presented with a fever and was tachy w/ urine studies concerning for a UTI & a swollen left olecranon concerning for a possible septic joint; however patient has a longstanding h/o pseudogout. VSS overnight other than Tmax of 100.9F. -Laboratories indicative of possible infectious etiology for joint changes as WBC slightly up to 14.8 & CRP up from 8 to 12. ESR also elevated at 34. Procal negative making bacteremia less likely. - Continue vanc and rocephin (renally dosed) pending culture results & sensitivities - Blood and urine cultures pending #Pseudogout vs septic joint of L elbow -Pt is on 5 mg prednisone daily for pseudogout but presented with a swollen joint and fever c/w possible septic arthritis; however UA c/w UTI which could also be source of fever. COVID test also pending. -Per PCP's recs will attempt aspiration of left elbow today for gram stain, culture, & cell studies to assess for septic joint. In the meantime will increase rocephin to 2g daily & continue vanc to cover for possible septic joint & will continue high dose steroids 30 mg/day for pseudogout pending fluid studies from aspiration. #UTI - Continue rocephin. CX pending. #CKDIII -GFR 43, within baseline range -Renally dose medications #Hypothyroidism -Continue home medications #HTN -continue home meds #HLD -home meds #Hx of Breast cancer -aware #CHF - Not in acute exacerbation, resume home meds #Severe Aortic stenosis - Aware #Pulmonary HTN - Aware #Elevated troponin, likely demand - Trop downtrended overnight. #Constipation -senna doc -miralax daily Diet: HH, limit to 1800 ml/day GI ppx: none DVT ppx: home coumadin IVFs: SL Abx: Vanc & rocephin (07/15) PCP: Lolita Code: DNR DNI Dispo: LOS >48 hours. Continue IV abx on telemetry unit for sepsis 2/2 UTI and/ or septic arthritis with plans for a L olecranon arthrocentesis pending covid test results. Addendum - Attending - Attending Attestation Date/Time: 07/17/19 8491 I personally evaluated the patient and discussed the management with Dr. Mccurdy. I agree with the History, Examination, Assessment and Plan documented above with any addition or exceptions noted below. feeling a little better today. 2mL Fluid aspirated from olecranon bursa and sent to lab. f/u culture results. continue abx. If fluid from elbow non infections, will d/c vanc.
[2019-07-17] MEDS: predniSONE 20 MG TAB PO SCH (08:14)
[2019-07-17] MEDS: Famotidine 20 MG TAB PO SCH (08:14)
[2019-07-17] MEDS: Polyethylene Glycol 3350 17 GM Packet PO SCH (08:15)
[2019-07-17] MEDS: Furosemide 40 MG TAB PO SCH ×2 (08:15→18:37)
[2019-07-17] MEDS: Loratadine 10 MG TAB PO SCH (08:15)
[2019-07-17] MEDS ORDERED: Lidocaine 2% 20 ml MDV SC SCH (11:45)
--- NOTE | 2019-07-17 12:41 | PDOC.OP ---
Operative Note - Operative Note Operative Note: Indications: Pseudogout vs Septic Joint Consent obtained: Yes Operators: 1) Attending: Dr. Chuy Cohen 2) Resident: Dr. Robert Brady Site of procedure: L Elbow Pre-procedure diagnosis: Pseudogout vs Septic Joint Team pause: Prior to the beginning of the procedure, the team paused to verify the patient s identity, the procedure to be performed in accordance with the consent obtained prior to procedure and the correct side/site. This information was verified by the patient. Procedure: By physical exam an effusion was located at the L Elbow The site was prepped with alcohol swabs. Using sterile technique a 27 gauge needle the site was anesthetized with 1.5 mL of 1% lidocaine. The site was the sterilized with betadine. The joint space was entered with insertion from proximal to distal with an 18 gauge needle and fluid was aspirated. A clean dressing was applied. Findings: Volume of synovial fluid aspirated: 3 mL Synovial fluid appearance: Straw, clear appearance Diagnostic studies: - cell count and differential - crystal analysis - gram stain and culture Robert Brady DO ATTENDING ADDENDUM: Present for and supervised procedure.
[2019-07-17] MEDS ORDERED: Vancomycin 1 GM in Premix Bag 1 BAG IVPB SCH ×2 (15:00→16:00)
[2019-07-17] MEDS ORDERED: cefTRIAXone\\ROCEPHIN 1 GM in Sodium Chloride 0.9% 100 ML IVPB SCH (16:00)
[2019-07-17] MEDS ORDERED: cefTRIAXone\\ROCEPHIN 2 GM in Sodium Chloride 0.9% 100 ML IVPB SCH (16:00)
[2019-07-17 16:27] LABS: RBC Count-Automated (BF) 18001 /cu.mm; WBC/Nucleated-Auto (BF) 31257 uL
[2019-07-17 16:38] LABS: BF Color Yellow; Body Fluid Source Synovial Fluid; Clarity Cloudy/Turbid (Clear); Tube # EDTA
[2019-07-17 16:49] LABS: SARS-CoV-2 MS2 Positive; SARS-CoV-2 N Gene Negative; SARS-CoV-2 S Gene Negative; SARS-CoV-2 orf1ab Negative
[2019-07-17 16:49] LABS: BF Segmented Neutrophils 49 %; Cell Count Non Hematic 46 %; Eosinophils 1 %; Lymphocytes 4 %
[2019-07-17] MEDS ORDERED: Warfarin Sodium 2.5 MG TAB PO SCH (17:00)
[2019-07-18 04:26] LABS: #Neutrophils 14.8 thou/uL (1.40-6.50); %Basophils 0.1 % (0.0-1.0); %Eosinophils 0.3 % (0.0-10.0); %Lymphocytes 5.7 % (21.0-51.0); %Monocytes 6.2 % (0.0-10.0); %Neutrophils 87.8 % (42.0-75.0); Hemoglobin 13.2 g/dL (12.0-16.0); Mean Corpuscular HGB CONC 32.3 g/dL (32.0-36.0); Mean Corpuscular Hemoglobin 33.1 pg (27.0-31.0); Mean Platelet Volume 9.7 fL (7.4-10.4); Platelet Count 131 thou/uL (130-400); RBC Distribution Width 13.1 % (11.5-14.5); White Blood Cell (WBC) Count 16.9 thou/uL (4.8-10.8)
[2019-07-18 04:33] LABS: INR-International Normal Ratio 1.4; Prothrombin Time 17.4 sec (12.0-14.7)
[2019-07-18] MEDS: Levothyroxine Sodium 100 MCG TAB PO SCH (05:18)
--- NOTE | 2019-07-18 07:07 | PDOC.FM ---
- Subjective Subjective: NAEO. Patient reports she feels well this AM. Reports her left arm pain & swelling has improved since her procedure yesterday. No fever/chills/N/V/D. Still constipated. - Objective MAR Reviewed: Yes Vital Signs & Weight: Vital Signs (12 hours) Temp Pulse Resp BP Pulse Ox 07/18/19 03:29 97.6 F 62 20 118/71 93 L 07/18/19 00:10 68 14 114/73 95 07/17/19 23:45 98.4 F 93 07/17/19 21:10 97 07/17/19 20:30 96.3 F L 63 20 124/72 97 Weight Weight 103.963 kg I&O: 07/17/19 07/18/19 07/19/19 06:59 06:59 06:59 Intake Total 240 Output Total 650 Balance -410 Result Diagrams: 07/18/19 03:59 07/17/19 02:18 Phys Exam - Physical Examination Constitutional: NAD HEENT: moist MMs Neck: supple, full ROM Respiratory: no wheezing, no rales, no rhonchi, clear to auscultation bilateral irregularly irregular rhythm with normal rate & 3/6 systolic flow murmur Gastrointestinal: soft, non-tender trace edema & erythema in B/L LEs (chronic) & improved edema in L elbow Neurological: non-focal, moves all 4 limbs Psychiatric: normal affect, A&O x 3 Deviation from normal: unchanged erythema & warmth over L olecranon process Dx/Plan (1) UTI (urinary tract infection) Status: Acute (2) Afib Code(s): I48.91 - UNSPECIFIED ATRIAL FIBRILLATION Status: Chronic Qualifiers: Atrial fibrillation type: longstanding persistent Qualified Code(s): I48.11 - Longstanding persistent atrial fibrillation (3) Pseudogout Code(s): M11.20 - OTHER CHONDROCALCINOSIS, UNSPECIFIED SITE Status: Chronic (4) CKD (chronic kidney disease) stage 3, GFR 30-59 ml/min Code(s): N18.3 - CHRONIC KIDNEY DISEASE, STAGE 3 (MODERATE) Status: Chronic (5) Chronic anticoagulation Code(s): Z79.01 - LONG-TERM (CURRENT) USE OF ANTICOAGULANTS Status: Chronic (6) Chronic back pain Code(s): M54.9 - DORSALGIA, UNSPECIFIED; G89.29 - OTHER CHRONIC PAIN Status: Chronic Qualifiers: Back pain location: low back pain Back pain laterality: bilateral Sciatica presence: unspecified whether sciatica present Qualified Code(s): M54.5 - Low back pain; G89.29 - Other chronic pain (7) HTN (hypertension) Code(s): I10 - ESSENTIAL (PRIMARY) HYPERTENSION Status: Chronic Qualifiers: Hypertension type: essential hypertension Qualified Code(s): I10 - Essential (primary) hypertension (8) Hypothyroidism Code(s): E03.9 - HYPOTHYROIDISM, UNSPECIFIED Status: Chronic (9) Lymphedema Code(s): I89.0 - LYMPHEDEMA, NOT ELSEWHERE CLASSIFIED Status: Chronic (10) Pulmonary HTN Code(s): I27.2 - OTHER SECONDARY PULMONARY HYPERTENSION * DO NOT USE * Status : Chronic (11) Severe aortic stenosis Code(s): I35.0 - NONRHEUMATIC AORTIC (VALVE) STENOSIS Status: Chronic - Plan Plan: 83YOF with a PMH notable for a recent e coli UTI & pseudogout who was admitted for sepsis 2/2 a UTI and/or possible septic arthritis of the left elbow who was found to have as pseudomonas UTI and an acute pseudogout flare. #Sepsis 2/2 Pseudomonas UTI - Patient presented with a fever and was tachy w/ urine studies concerning for a UTI & a swollen left olecranon concerning for a possible septic joint; however patient has a longstanding h/o pseudogout. VSS overnight. - WBC slightly up to 16.9 but patient also on high dose steroids for likely pseudogout flare as fluid analysis from elbow sent yesterday had gross crystal formation. Low concern for septic joint based on prelim studies thus far. Repeat procal up slightly to 0.77 this AM. - Urine Cx growing 25-50 cfus of presumptive pseudomonas. Blood Cxs with NGTD. Will transition to PO cipro for adequate pseudomonas coverage. #Pseudogout flare of L elbow -Pt was on 5 mg prednisone daily for pseudogout but presented with a swollen left elbow joint and fever c/w possible septic arthritis; however UA c/w UTI which could also be source of fever. COVID test negative. -Per PCP's recs aspiration of left elbow was done yesterday & sent for gram stain, culture, & cell studies. Per other members of primary team crystals were grossly apparent in fluid upon aspiration. Preliminary gram stain revealed no organisms and only a few WBCs. Crystal analysis still pending. Will continue high dose steroids 30 mg/day for pseudogout for 10 days and then slowly taper over to maintenance dose. #Afib with RVR, resolved -Will continue home metoprolol. #Pseudomonas UTI -Will transition to PO cipro per sensitivities. -Will obtain a renal US to r/o any abscess or anatomic abnormalities which could be contributing for severe and/or recurrent infections. #Covid r/o, resolved -COVID swab negative #Elevated troponin, likely demand -Trop downtrended overnight on date of admission. #CKDIII -GFR 43, within baseline range yesterday -Renally dose medications & continue to trend #Hypothyroidism -Continue home medications #HTN -continue home meds #HLD -home meds #Hx of Breast cancer -aware #CHF - Not in acute exacerbation, resume home meds #Severe Aortic stenosis - Aware #Pulmonary HTN - Aware #Constipation -senna doc -miralax daily Diet: GI ppx: none DVT ppx: home coumadin IVFs: SL Abx: Cipro (07/17) PCP: Lolita Code: DNR DNI Addendum - Attending - Attending Attestation Date/Time: 07/18/19 1111 I personally evaluated the patient and discussed the management with . [] I agree with the History, Examination, Assessment and Plan documented above with any addition or exceptions noted below. Elbow tap not concerning for infection. crystal studies and culture pending. likely gout/pseudogout. Renal US to evaluate for possible abscess. PT to evaluate. If US negative and PT clear for HH PT, will switch to PO cipro for 10 days and d/c home.
[2019-07-18] MEDS ORDERED: Cipro 250 MG TAB PO SCH ×2 (09:00→20:00)
[2019-07-18] MEDS ORDERED: Cefepime 2 GM in Sodium Chloride 0.9% 100 ML IVPB SCH (09:00)
[2019-07-18] MEDS: Famotidine 20 MG TAB PO SCH (09:07)
[2019-07-18] MEDS: predniSONE 20 MG TAB PO SCH (09:09)
[2019-07-18] MEDS: Furosemide 40 MG TAB PO SCH (09:10)
[2019-07-18] MEDS: Loratadine 10 MG TAB PO SCH (09:10)
[2019-07-18] MEDS: Polyethylene Glycol 3350 17 GM Packet PO SCH (09:12)
--- NOTE | 2019-07-18 14:33 | ULT ---
RENAL ULTRASOUND: History: Recurrent UTIs. FINDINGS: Real-time imaging of the right and left kidneys was performed. The right kidney is 10 cm and the left kidney 10.9 cm. There are no signs of cyst, mass or obstruction. There is cortical thinning present. A 3.9 cm upper pole left renal cyst is present. Bladder region appears unremarkable. Exam is technic ally difficult due to bowel gas. IMPRESSION: 1. No evidence of obstruction. 2. Left renal cyst. 3. Cortical thinning with some increased echogenicity to the kidneys which would indicate possibly un derlying medical renal parenchymal disease. POS: [facility]
[2019-07-18 16:06] VITALS: BP 155/78; TEMP 98.1
--- NOTE | 2019-07-18 20:35 | DIS ---
DATE OF ADMISSION: 07/16/2019 DATE OF DISCHARGE: 07/18/2019 RESIDENT: Izabella Mccurdy MD ADMITTING ATTENDING: Chuy Cohen MD DISCHARGING ATTENDING: Chuy Cohen MD CONSULTS: None. PROCEDURES: 1. Chest x-ray on 07/16/2019, which showed no acute cardiopulmonary process. 2. Left elbow x-ray on 07/16/2019, notable for soft tissue prominence over the olecranon, possibly representing fluid distention of the olecranon bursa. No acute osseous abnormalities were demonstrated. 3. Left olecranon bursa synovial fluid aspiration on 07/17/2019. 4. Renal ultrasound 07/18/2019, notable for a left renal cyst measuring 10 x approximately 3.9 cm with no evidence of obstruction and cortical thinning with an increased echogenicity to the kidneys, which would indicate a possibly underlying medical renal parenchymal disease. DISCHARGE MEDICATIONS: 1. Vicoprofen 7.5/200 mg tabs 1 tab p.o. q.6 hours p.r.n. 2. Albuterol sulfate 2 puffs inhaled as needed. 3. Famotidine 20 mg p.o. daily. 4. Metoprolol succinate 100 mg p.o. as needed for heart rate greater than 100. 5. Levothyroxine 100 mcg p.o. daily. 6. Cholecalciferol 3000 units p.o. daily. 7. Cetirizine 10 mg p.o. daily. 8. Artificial Tears 2 drops in each eye q.4 hours as needed. 9. Voltaren gel 100 gm tube, 2 gm topically q.i.d. as needed. 10. Furosemide 40 mg p.o. b.i.d. 11. Prednisone 30 mg p.o. q.a.m. with meals for 8 days. 12. Warfarin sodium 2.5 mg p.o. daily. 13. Dulcolax 10 mg VT daily as needed. 14. Ciprofloxacin 500 mg p.o. b.i.d., 15 tabs. DISCONTINUED MEDICATION: Prednisone 5 mg p.o. q.a.m. with meals. PRIMARY DIAGNOSES: 1. Sepsis secondary to Pseudomonas urinary tract infection. 2. Atrial fibrillation with rapid ventricular response. 3. Pseudogout flare. 4. Elevated troponin secondary to demand ischemia. SECONDARY DIAGNOSES: 1. Chronic atrial fibrillation, on oral anticoagulation. 2. Chronic kidney disease, stage 3. 3. Hypothyroidism. 4. Hypertension. 5. Hyperlipidemia. 6. History of breast cancer with chronic lymphedema. 7. Congestive heart failure. 8. Severe aortic stenosis. 9. Pulmonary hypertension. HOSPITAL COURSE: The patient is an 83-year-old female with a past medical history notable for chronic atrial fibrillation, pseudogout and CKD-3, who presented to the ED for evaluation for fever and chills that started on the morning of presentation. She also endorsed left elbow pain and swelling that started approximately 2 days prior to presentation and some upper back pain that started 1 day prior to presentation. Of note, the patient was recently discharged after being admitted for sepsis secondary to an E. coli UTI as well as a flare of her pseudogout. En route to the ED the patient was noted to be in atrial fibrillation with RVR with a heart rate in the 140s and was given a bolus of Cardizem and then started on a Cardizem drip. At the time of arrival, all vitals were noted to be within normal limits and routine lab work was obtained. Her urinalysis was consistent with a UTI. In addition, given her erythematous & warm left elbow and fever, a left elbow x- ray was also obtained, which showed some soft tissue swelling and an ESR & CRP were obtained, both of which were elevated at ~8 & 34 respectively. In addition, due to her fever, the patient was tested for COVID-19 infection although she reported no respiratory symptoms at the time of presentation. Thus, given her initially elevated HR, fever, & elevated WBC of 14.2 she was determined to be septic 2/2 a UTI and/or septic arthritis of her left elbow. In the ER, the patient was given 2 gm of IV Rocephin, IV vancomycin and 2 gm of IV aztreonam as well as 4 mg of morphine. On admission she was continued on the diltiazem drip & IV rocephin and started on NS at 100 mL an hour. Regarding the patient's sepsis, on presentation it was questionable as to whether or not the patient had septic arthritis given her erythematous and swollen left elbow. Laboratories including ESR, CRP and procalcitonin were trended overnight, all of which trended up slightly and/or remained stable at 34, 12 & 0.10 the following AM. After consulting with the patient's primary care physician, it was recommended that she undergo aspiration of her left elbow to confirm her diagnosis of pseudogout and/or rule out septic arthritis. The patient therefore underwent arthrocentesis of her left olecranon bursa, which yielded slightly turbid fluid that had gross crystallization noted upon aspiration. Preliminary Gram stain and culture did not yield any organisms and showed only a few white blood cells. The fluid was also sent for crystal analysis, which had not resulted by the date of the patient's discharge. She was therefore continued on high dose PO steroids for a presumed acute pseudogout flare. The course of her sepsis & fever was therefore determined to be from a Pseudomonas per her urine Cx results. On the date of d/ c she was transitioned to p.o. ciprofloxacin to be continued to complete a 10-day course of antibiotics. Iin addition, given her recent frequency of urinary tract infections a renal US was done which was notable for the findings described above. Thus, after clearance by physical therapy, the patient was deemed stable enough to go back home with her home health services for continued PT. Regarding her atrial fibrillation with RVR, the patient was admitted to the telemetry floor on a diltiazem drip, which was able to be discontinued after giving her a dose of her home metoprolol. Overnight, the patient's heart rate remained stable after discontinuation of the dilt drip and it remained within normal limits for the remainder of her hospital stay. Regarding her elevated troponin, the patient's troponin was initially elevated at 0.054, but eventually down trended over the course of her stay. It was therefore determined to most likely be secondary to demand ischemia. DISPOSITION: Stable. DISCHARGE INSTRUCTIONS: 1. Location: Home with home health for PT. 2. Activity as tolerated. No restrictions. 3. Diet: Heart healthy, low-sodium diet. 4. Followup. The patient was instructed to follow up with her primary care physician, Dr. Mitchell Mchugh within 1 week of discharge. Job ID: [id number] [facility]
== END 2019-07-18 16:30 | disposition home or self-care (01) | DRG 872 ==
LOC: ERS 13:58 → 2SW 16:13 → 2NO 07-17 21:18
PROVIDERS: ADMIT Family Medicine; ATTEND Family Medicine
PROC: 0R9M3ZZ Drainage of Left Elbow Joint, Percutaneous Approach (ICD-10-PCS; principal; 2019-07-17)
PROC: 8E0ZXY6 Isolation (ICD-10-PCS; 2019-07-17)
DX: A41.52 Sepsis due to Pseudomonas (principal); N39.0 Urinary tract infection, site not specified; I24.8 Other forms of acute ischemic heart disease; I48.20 Chronic atrial fibrillation, unspecified; I13.0 Hypertensive heart and chronic kidney disease with heart failure and stage 1 through stage 4 chronic kidney disease, or unspecified chronic kidney disease; I48.11 Longstanding persistent atrial fibrillation; M00.822 Arthritis due to other bacteria, left elbow; Z20.828 Contact with and (suspected) exposure to other viral communicable diseases; M11.20 Other chondrocalcinosis, unspecified site; E78.5 Hyperlipidemia, unspecified; Z66 Do not resuscitate; I89.0 Lymphedema, not elsewhere classified; I50.9 Heart failure, unspecified; I35.0 Nonrheumatic aortic (valve) stenosis; I27.20 Pulmonary hypertension, unspecified; N18.3 Chronic kidney disease, stage 3 (moderate); K59.00 Constipation, unspecified; E78.00 Pure hypercholesterolemia, unspecified; E03.9 Hypothyroidism, unspecified; Z96.653 Presence of artificial knee joint, bilateral; Z90.710 Acquired absence of both cervix and uterus; Z79.01 Long term (current) use of anticoagulants; Z90.49 Acquired absence of other specified parts of digestive tract; Z90.12 Acquired absence of left breast and nipple; Z98.42 Cataract extraction status, left eye; Z98.41 Cataract extraction status, right eye; Z88.6 Allergy status to analgesic agent; Z88.1 Allergy status to other antibiotic agents; Z88.2 Allergy status to sulfonamides; Z88.8 Allergy status to other drugs, medicaments and biological substances
CPT/HCPCS: 36415; 51701; 71045; 76770; 80048; 80053; 81003; 81015; 82553; 83605; 83880; 84145; 84443; 84484; 85025; 85060; 85610; 85652; 85730; 86140; 87040; 87070; 87077; 87086; 87186; 87205; 87635; 87804; 89051; 89060; 93005; 94760; 96365; 96366; 96368; 96375; J0696; J2270; J3370; J3490; J7030; J7512; U0003

== ENCOUNTER 2019-09-06 22:24 | Observation (INO) | payer MEDICARE, OTHER ==
--- NOTE | 2019-09-06 23:24 | PDOC.FPRHP ---
- History of Present Illness Chief Complaint: fall History of Present Illness: 83 yo F, CHF, Afib, aortic stenosis, hypothyroidism HLD, HTN, gout, asthma, CKDIII who presented to the ER for evaluation following a fall earlier this evening at home. Per the patient she slipped getting out of bed and skinned her left burnette, and bruised her right hip. Endorses pain on her L burnette but denies pain on hip. She then went to the [place] ER for further evaluation and on arrival to [place] she was noted to be in afib w/ RVR in the 130s. She was given a 20mg IVP dose of diltiazem before being started on a dilt drip & transferred to [facility] ER for higher level of care. Patient denies chest pain or palpations, no fever, no shortness of breath. ED Course: Patient was started on diltiazem drip. - Allergies/Adverse Reactions Allergies Allergy/AdvReac Type Severity Reaction Status Date / Time adhesive tape Allergy Intermediate "peels my Verified 09/07/19 01:00 skin off" acetaminophen [From Tylenol] Allergy Hives Verified 09/07/19 01:00 Penicillins Allergy Rash Verified 09/07/19 12:31 simvastatin [From Zocor] Allergy Verified 09/07/19 01:00 Sulfa (Sulfonamide Allergy Verified 09/07/19 01:00 Antibiotics) tramadol Allergy Verified 09/07/19 01:00 colchicine AdvReac Intermediate Diarrhea Verified 09/07/19 12:31 - Home Medications Medication Instructions Recorded Confirmed Type Albuterol Sulfate HFA (OR) 2 puff INH PRN PRN 06/28/19 09/07/19 History [Proventil Hfa (or)] Cetirizine HCl [Zyrtec] 10 mg PO DAILY 06/28/19 09/07/19 History Cholecalciferol (Vitamin D3) 3,000 unit PO DAILY 06/28/19 09/07/19 History [Vitamin D] Famotidine [Pepcid AC] 20 mg PO DAILY 06/28/19 09/07/19 History HYDROcodone/Ibuprofen [Vicoprofen] 1 tab PO Q6HR PRN 06/28/19 09/07/19 History Levothyroxine Sodium [Synthroid] 100 mcg PO DAILY 06/28/19 09/07/19 History Metoprolol Succinate [Toprol XL] 100 mg PO PRN PRN 06/28/19 09/07/19 History Artificial Tears [Tears Naturale 2 drop EA EYE Q4H PRN each 06/30/19 09/07/19 Rx Free] Diclofenac Sodium [Voltaren Gel] 2 gm TP QID PRN tube 06/30/19 09/07/19 Rx Furosemide [Lasix] 40 mg PO 0900,1600 tab 07/06/19 09/07/19 Rx Warfarin Sodium [Coumadin] 2.5 mg PO DAILY@1700 #30 tab 07/06/19 09/07/19 Rx Bisacodyl [Dulcolax] 10 mg MN DAILYPRN PRN supp 07/18/19 09/07/19 Rx Allopurinol [Zyloprim] 100 mg PO DAILY #30 tablet 09/07/19 Rx Colchicine 0.6 mg PO DAILY 09/07/19 09/07/19 History Colchicine 0.6 mg PO DAILY #30 capsule 09/07/19 Rx Metoprolol Succinate [Toprol XL] 25 mg PO DAILY #30 tab 09/07/19 Rx - History PMHx: CHF, Afib, aortic stenosis, hypothyroidism HLD, HTN, gout, asthma, CKDIII PSHx: hysterectomy, mastectomy, of the left breast. colon surgery, bilateral knee replacement x2 , cataract surgery x2. FHx:CAD Social: no smoking, alcohol, or illicit drug use - Review of Systems General: reports: other (+ fall). denies: fever/chills, weight/appetite/sleep changes Eyes: denies: eye pain, vision changes ENT: denies: nasal congestion, rhinorrhea Respiratory: denies: cough, congestion Cardiovascular: denies: chest pain, palpitation Gastrointestinal: denies: nausea, vomiting, diarrhea Genitourinary: denies: incontinence, dysuria Skin: denies: rashes, lesions Musculoskeletal: reports: pain (pain on left burnette). denies: tenderness Neurological: reports: syncope. denies: numbness Psychological: denies: anxiety, depression - Vital signs BP: 123/68, Pulse: 102, Resp: 16, O2 sat: 99 on RA, Wt 95KG - Physical Exam Constitutional: NAD, awake, alert and oriented, other (resting comfortably in bed) HEENT: normocephalic and atraumatic, PERRLA, EOMI Neck: supple, FROM Heart: RRR, other (4/6 systolic ejection murmur best heard at left sternal border) Lungs: CTAB, no respiratory distress Abdomen: soft, non-tender, bowel sounds present Musculoskeletal: normal structure, normal tone -Musculoskeletal: swelling and redness of bilateral dip joints, worse on right, and mild swelling bilateral elbows d/t chronic gout - no TTP Neurological: no focal deficit, normal sensation Skin: no rash/lesions, good turgor -Skin: ecchymosis of the right posterior thigh - no TTP, gauze-covered skin tear over left burnette Psychiatric: normal mood and affect, good judgment and insight, intact recent and remote memory FMR H&P: Results - Labs Result Diagrams: 09/07/19 04:08 - EKG Interpretation EKG: Afib with RVR FMR H&P: A/P - Problem List (1) Atrial fibrillation with RVR Status: Acute Code(s): I48.91 - UNSPECIFIED ATRIAL FIBRILLATION (2) Fall Status: Acute Code(s): W19.XXXA - UNSPECIFIED FALL, INITIAL ENCOUNTER (3) Gout Status: Acute Code(s): M10.9 - GOUT, UNSPECIFIED (4) CKD (chronic kidney disease) stage 3, GFR 30-59 ml/min Status: Chronic Code(s): N18.3 - CHRONIC KIDNEY DISEASE, STAGE 3 (MODERATE) (5) HTN (hypertension) Status: Chronic Code(s): I10 - ESSENTIAL (PRIMARY) HYPERTENSION Qualifiers: Hypertension type: essential hypertension Qualified Code(s): I10 - Essential (primary) hypertension (6) Hypothyroidism Status: Chronic Code(s): E03.9 - HYPOTHYROIDISM, UNSPECIFIED (7) Severe aortic stenosis Status: Chronic Code(s): I35.0 - NONRHEUMATIC AORTIC (VALVE) STENOSIS - Plan 1. AFib with RVR Patient started on dilt drip at [facility] Afib controlled, with heart rate in the 90s-low 100s - home metoprolol is prn, patient notes she last took 1 week ago - continue dilt trip, plans to start home metorpolol prn and titrate dilt down - continue cardiac monitoring - am CMP/CBC 2. Elevated Troponin Trop .044 Likely 2/2 demand ischemia from Afib with RVR - will continue to trend Trops - continued cardiac monitoring 3. Fall D/t tripping, denies dizzy/lightheaded, LOC, no head injury Skin tear on L burnette, ecchymosis on R posterior thigh with no TTP - tylenol prn pain 4. Hypokalemia K 3.3 - 40mEq of KCl given - will recheck CMP in am - Will check Mg/Phos 5. Gout Flare at b/l hand PIPs Per patient, new gout medication added by PCP - will talk with Lolita and heidy rec new medication 6. Hx CKD - Cr today 1.31 (baseline ranges 1.10-1.50) - morning CMP - monitoring I/Os 7. Hx HTN Blood pressures stable - restarted patient's home metoprolol succinate prn 8. Hx CHF Denies SOB, or LE edema - will resume home lasix - Monitoring I/Os 9. Hypothyroidism - will resume home levothyroxine - will check TSH in the am 10. Hx aortic stenosis aware, 4/6 [place] noted at [facility] 11. Hx asthma -aware, restarted home albuterol prn Dispo: admit tele obs LOS < 48 hours PCP: Lolita DVT PPx: home coumadin Codes status: DNI/DNR I have discussed this case with Dr. Pretty. FMR H&P: Upper Level - Plan Date/Time: 09/06/192323 I, Izabella Mccurdy, have evaluated this patient and agree with findings/plan as outlined by pharmacy grad intern resident. Pertinent changes/additions are listed here. 83YOF with a PMH notable for afib, hypothyroidism, HTN & HFpEF who presented to the ER for evaluation following a fall earlier this evening at home. Per the patient she slipped getting out of bed and hit he right leg on a chair causing an immediate bruise & then went to the [place] ER for further evaluation. On arrival to [place] she was noted to be in afib w/ RVR in the 130s. Bloodwork was obtained which was notable for a K of 3.2 and an indeterminately elevated troponin level of 0.034. She was given a 20mg IVP dose of diltiazem before being started on a dilt drip @ ~5 & transferred to [facility] ER for higher level of care. On exam the patients vitals were WNLs & she was in on acute distress w/o complaints. She was noted to be in afib but her rate was WNLs. Her PE was notable for a 4/6 systolic flow ejection murmur, erythema & edema in her right hand, and a bruise on her lateral right thigh. Plan will be to admit her to telemetry for close observation overnight & to give a PO dose of her home metoprolol to see if the drip can be stopped to down-titrated. Will replace her K with 40mEq PO and recheck with AM labs. Will also check a TSH and Mg & phos level & replace PRN. Will continue to trend her troponins but likely elevated 2/ 2 demand from a fib w/ RVR. Will resume home meds for all other chronic conditions. Anticipated LOS <48 hours pending clinical course. Addendum - Attending - Attending Attestation Date/Time: 09/06/19 9524 I personally evaluated the patient and discussed the management with Dr. Guerrero and Dr. Mccurdy I agree with the History, Examination, Assessment and Plan documented above with any addition or exceptions noted below. 83 yo female with hx of chronic afib presents for evaluation after mechanical fall found to be in RVR. Rate now improved with IV CCB. Will likely be able to transition to PO medication in AM without complications. Patient very stable and asymptomatic. Leg laceration has been taken care of by ER staff. Admit for IV medication and monitoring. Rule out new ischemia but low risk. [place]
[2019-09-06] MEDS ORDERED: Potassium Chloride 20 MEQ TAB ONE (23:31)
[2019-09-07 00:04] LABS: Magnesium 1.5 mg/dL (1.6-2.6); Phosphorus 3.7 mg/dL (2.3-4.7)
[2019-09-07 00:13] LABS: Troponin I 0.044 ng/mL (< 0.028)
[2019-09-07] MEDS ORDERED: Bisacodyl 10 MG SUPP PR PRN (00:52)
[2019-09-07] MEDS ORDERED: Polyvinyl Alcohol 1.4%/Povidone 0.6% Opth Drops EA EYE PRN (00:52)
[2019-09-07] MEDS ORDERED: Non-Formulary Item 1 EACH (Albuterol Sulfate Hfa (Or) 2 PUFF) INH PRN (00:52)
[2019-09-07] MEDS ORDERED: Diltiazem 125 MG in Sodium Chloride 0.9% 100 ML IVPB SCH (01:00)
[2019-09-07 04:53] LABS: INR-International Normal Ratio 1.9; Prothrombin Time 22.1 sec (12.0-14.7)
[2019-09-07 05:09] LABS: ALT (SGPT) Less than 7 U/L (8-55); AST (SGOT) 14 U/L (5-34); Alkaline Phosphatase 62 U/L (40-110); Anion Gap 11 mmol/L (10-20); BUN (Urea Nitrogen) 18 mg/dL (9.8-20.1); Bilirubin, Total 1.3 mg/dL (0.2-1.2); Calc. Creatinine Clearance 0 mL/min (70-130); Calcium 8.5 mg/dL (7.8-10.44); Carbon Dioxide 32 mmol/L (23-31); Chloride 98 mmol/L (98-107); Estimated GFR-MDRD 39; Globulin 2.3 g/dL (2.4-3.5); Glucose 112 mg/dL (83-110); Potassium 3.3 mmol/L (3.5-5.1); Protein, Total 5.3 g/dL (6.0-8.3); Sodium 138 mmol/L (136-145)
[2019-09-07 05:13] LABS: Troponin I 0.038 ng/mL (< 0.028)
[2019-09-07] MEDS ORDERED: Levothyroxine Sodium 100 MCG TAB PO SCH (06:00)
[2019-09-07 08:14] LABS: Magnesium 1.6 mg/dL (1.6-2.6); Phosphorus 3.6 mg/dL (2.3-4.7)
--- NOTE | 2019-09-07 08:37 | PDOC.FM ---
- Subjective Subjective: Patient is resting comfortably in bed. No complaints or concerns. Denies CP, DAWSON , SOB, abdominal pain. Does endorse some pain on her right middle finger, endorsing a gout flare. - Objective MAR Reviewed: Yes Vital Signs & Weight: Vital Signs (12 hours) Temp Pulse Resp BP Pulse Ox 09/07/19 07:58 99.4 F 81 16 100/64 92 L 09/07/19 04:00 97.9 F 93 16 104/62 93 L 09/07/19 00:40 98.6 F 96 20 123/63 93 L Result Diagrams: 09/07/19 04:08 Phys Exam - Physical Examination Constitutional: NAD HEENT: moist MMs, sclera anicteric Neck: full ROM Respiratory: no wheezing, clear to auscultation bilateral Cardiovascular: RRR systolic murmur appreciated Gastrointestinal: soft, non-tender Musculoskeletal: no edema, pulses present Neurological: moves all 4 limbs Psychiatric: A&O x 3 Skin: normal turgor Deviation from normal: redness of right middle DIP and PIP, warm, tender to palpation Dx/Plan - Plan Plan: 1. AFib with RVR Patient started on dilt drip at [facility] Here, Afib controlled, with heart rate in the 90s-low 100s - home metoprolol is prn, patient notes she last took 1 week ago - dilt gtt stopped, rate controlled in 70s - continue cardiac monitoring - consider adding a PO medication for rate control 2. Elevated Troponin Trop .044--> .038 Likely 2/2 demand ischemia from Afib with RVR -denies CP, SOB - will continue to trend Trops - continued cardiac monitoring 3. Fall D/t tripping, denies dizzy/lightheaded, LOC, no head injury Skin tear on L burnette, ecchymosis on R posterior thigh with no TTP - tylenol prn pain 4. Hypokalemia K 3.3 - 40mEq of KCl given - continue to monitor 5. Gout Flare at b/l hand PIPs Per patient, new gout medication, Colchicine added by PCP - will talk with Lolita and heidy berg new medication 6. Hx CKD - Cr today 1.31 (baseline ranges 1.10-1.50) - continue to monitor - monitoring I/Os 7. Hx HTN Blood pressures stable - restarted patient's home metoprolol succinate prn 8. Hx CHF Denies SOB, or LE edema - will resume home lasix - Monitoring I/Os 9. Hypothyroidism - will resume home levothyroxine - TSH 10. Hx aortic stenosis aware, 4/6 [place] noted at [facility] 11. Hx asthma -aware, restarted home albuterol prn 12. Hypomagnesemia - 1.6 today, replace 2 mg IV Dispo: admit tele obs LOS < 48 hours PCP: Lolita DVT PPx: home coumadin Codes status: DNI/DNR
[2019-09-07] MEDS ORDERED: Potassium Chloride 20 MEQ TAB PO SCH (08:45)
[2019-09-07] MEDS ORDERED: Magnesium Citrate 300 ML BOT PO SCH (08:45)
[2019-09-07] MEDS ORDERED: Magnesium Sulfate 2 GM in Sodium Chloride 0.9% 100 ML IVPB SCH (09:00)
[2019-09-07] MEDS ORDERED: Loratadine 10 MG TAB PO SCH (09:00)
[2019-09-07] MEDS ORDERED: Famotidine 20 MG TAB PO SCH (09:00)
[2019-09-07] MEDS ORDERED: Furosemide 40 MG TAB PO SCH (09:00)
[2019-09-07] MEDS ORDERED: Cholecalciferol 1,000 UNITS (25 MCG) TAB PO SCH (09:00)
[2019-09-07] MEDS ORDERED: Magnesium 2 GM/50 ML 2 GM in Premix Bag 1 BAG IVPB SCH (09:15)
[2019-09-07] MEDS ORDERED: Potassium Chloride 20 MEQ in Premix Bag 1 BAG IVPB SCH (11:30)
[2019-09-07 12:03] VITALS: TEMP 97.7
[2019-09-07 12:25] LABS: SARS-CoV-2 MS2 Positive; SARS-CoV-2 N Gene Negative; SARS-CoV-2 S Gene Negative; SARS-CoV-2 by NAA Not Detected (NotDetected); SARS-CoV-2 orf1ab Negative
[2019-09-07 14:54] VITALS: BP 108/69
[2019-09-07] MEDS ORDERED: Warfarin Sodium 2.5 MG TAB PO SCH (17:00)
--- NOTE | 2019-09-08 05:22 | DIS ---
DATE OF ADMISSION: 09/06/2019 DATE OF DISCHARGE: 09/07/2019 RESIDENT: Kelsie Burton MD, PGY1 ADMITTING ATTENDING: Chaparrita Pretty MD DISCHARGE ATTENDING: Ajay Murillo MD. CONSULTATION: None. PROCEDURES: None. PRIMARY DIAGNOSIS: Atrial fibrillation with rapid ventricular response. SECONDARY DIAGNOSES: 1. Elevated troponin. 2. Fall. 3. Hypokalemia. 4. Gout. 5. History of chronic kidney disease. 6. History of hypertension. 7. History of congestive heart failure. 8. Hypothyroidism. 9. History of aortic stenosis. 10. Asthma. DISCHARGE MEDICATIONS: 1. Allopurinol 100 mg p.o. daily. 2. Colchicine 0.6 mg p.o. Daily. 3. Metoprolol succinate 25 mg p.o. daily. 4. Albuterol sulfate 2 puffs inhaled p.r.n. 5. Famotidine 20 mg p.o. daily. 6. Synthroid 100 mcg p.o. daily. 7. Vitamin D3, 3000 units p.o. daily. 8. Zyrtec 10 mg p.o. daily. 9. Artificial Tears two drops to each eye every 4 hours p.r.n. 10. Voltaren Gel 2 g topical four times a day p.r.n. 11. Lasix 40 mg p.o. b.i.d. 12. Coumadin 2.5 mg oral daily at 1700. 13. Dulcolax 10 mg rectally daily as needed. 14. Hydrocodone/ibuprofen one tablet p.o. q.6 hours p.r.n. DISCONTINUED MEDICATIONS: Metoprolol succinate 100 mg p.o. p.r.n. HISTORY OF PRESENT ILLNESS/HOSPITAL COURSE: Patient presented to the ER after a fall and she said that she slipped getting out of bed and skinned her left burnette and bruised her right hip. She denied any syncopal events or chest pain, palpitation, fever, or shortness of breath. Patient said she simply just tripped and fell. She was not feeling bad at that time of the fall. When she presented to the ED, she was found to be in AFib with RVR with rate in the 130s. Apparently, this is common for her. She presents to the ED with a problem that can be worked out at outpatient and she is incidentally found to be in AFib with RVR. On this admission, she was started on a dilt drip and she was rate controlled and subsequently stopped the dilt drip. PCP, Dr. Mchugh, was called and updated about the patient in the hospital and plan of care was jointly composed. Patient follows up regularly with Cardiology. She is unable to remember the name of the timekeeping supervisor, but says she had an echo scheduled with timekeeping supervisor later this week, so she will follow up with him. Also, encouraged the patient to follow up with PCP and/or timekeeping supervisor to figure out a plan to help long-term rate control. We will send the patient home on metoprolol 25 mg extended release for now for rate control. Patient remained stable throughout her hospital stay. Vitals stable. She was rate controlled in the 70s to 80s and had no more subsequent episodes of AFib on telemetry. DISPOSITION: Stable. DISCHARGE INSTRUCTIONS: Location: Home. Diet: Heart-healthy diet. Activity: Activity as tolerated. Followup: Follow up with timekeeping supervisor with appointment that is already in place this week and follow up with PCP, Lolita, to make sure patient is on long-term rate control medication. Job ID: [id number] MTDD
--- NOTE | 2019-09-08 05:59 | PRG ---
DATE OF SERVICE: 09/07/2019 ADDENDUM: This is an addendum to the note of Dr. Kelsie Burton. Ms. Nye is an 83-year-old lady, who has a history of heart failure, AFib, and aortic stenosis. She presented to the ER following a fall at her home. She was noted to be in AFib with RVR rate in the 130s. She was started on a diltiazem drip in an outlying ER and transferred to our facility for higher level of care. This morning, her heart rate is in the mid to low 90s and she is looking and feeling better. She also has a history of aortic stenosis with the accompanying murmur. We will stop her drip and transition her to p.o. beta-cosmo. May consider Cardiology consultation. Job ID: [id number]
[2019-09-08] MEDS ORDERED: Allopurinol 100 MG TAB PO SCH (09:00)
== END 2019-09-07 15:24 | disposition home or self-care (01) ==
LOC: ERS 22:24 → 2NO 23:34
PROVIDERS: ADMIT Student in an Organized Health Care Education/Training Program; ATTEND Student in an Organized Health Care Education/Training Program
DX: I48.20 Chronic atrial fibrillation, unspecified (principal); R79.89 Other specified abnormal findings of blood chemistry; E87.6 Hypokalemia; M10.9 Gout, unspecified; I13.0 Hypertensive heart and chronic kidney disease with heart failure and stage 1 through stage 4 chronic kidney disease, or unspecified chronic kidney disease; N18.3 Chronic kidney disease, stage 3 (moderate); I50.30 Unspecified diastolic (congestive) heart failure; E03.9 Hypothyroidism, unspecified; I35.0 Nonrheumatic aortic (valve) stenosis; J45.909 Unspecified asthma, uncomplicated; E78.5 Hyperlipidemia, unspecified; S70.01XA Contusion of right hip, initial encounter; S70.11XA Contusion of right thigh, initial encounter; E20.9 Hypoparathyroidism, unspecified; Z66 Do not resuscitate; Z79.01 Long term (current) use of anticoagulants; Z79.899 Other long term (current) drug therapy; Z88.0 Allergy status to penicillin; Z88.2 Allergy status to sulfonamides; Z88.5 Allergy status to narcotic agent; Z88.6 Allergy status to analgesic agent; Z88.8 Allergy status to other drugs, medicaments and biological substances; Z91.048 Other nonmedicinal substance allergy status; Z20.828 Contact with and (suspected) exposure to other viral communicable diseases; W01.0XXA Fall on same level from slipping, tripping and stumbling without subsequent striking against object, initial encounter
CPT/HCPCS: 80053; 83735 ×2; 84100 ×2; 84443; 84484 ×2; 84550 ×2; 85610; 96365; 99285; G0378; U0003; 36415; 87635; J3475